=== PATIENT | male | born 1945 | race Caucasian/White ===

== ENCOUNTER 2023-12-27 03:39 | Inpatient (IN) | payer MEDICARE, MEDICAID, SELFPAY ==
[2023-12-27] VITALS (32 sets, daily range): BP systolic 96–237; BP diastolic 50–212; PULSE 57–148; RESP 18–39; TEMP 36.1–36.8; O2SAT 84–100; BMI 18.1
--- NOTE | ~2023-12-27 | XR_ITS ---
XR chest 1V portable 12/27/2023 04:14 Indication: Shortness of breath. Hypoxia. Procedure: AP portable chest Comparison: 04/07/2009 Findings: Left basilar airspace disease, compatible with pneumonia. The lungs are hyperinflated which is consistent with, but not diagnostic of chronic obstructive pulmonary disease. Possible small effu miladis. No pneumothorax. Subtle right basilar infiltrates. Impression: 1: Bibasilar airspace disease, left greater than right, compatible with pneumonia. Reviewed, dictated and finalized at location B. Impression: 1: Bibasilar airspace disease, left greater than right, compatible with pneumon ia.
--- NOTE | ~2023-12-27 | CT_ITS ---
EXAMINATION: CTA chest PE protocol DATE: 12/27/2023 06:15 CDT INDICATION: Hypoxia. Elevated d-dimer. TECHNIQUE: Computed tomographic angiography (CTA) of the chest was performed with 100 mL Omnipaque-35 0 intravenous contrast. The dose-length product was 286.03 mGy-cm. Maximum intensity projection 3D-re constructions of the aorta and other arteries were constructed by the technologist on a separate work station. Automated exposure control and iterative reconstruction technique were employed. COMPARISON: CT dated 08/10/2018. FINDINGS: Elevated left diaphragm. Study is technically adequate without evidence for pulmonary embol ism. Bilateral pleural effusions, left greater than right. Emphysema. 1.4 cm lingular nodule. Extensi ve left lower lobe airspace consolidation. Reticulonodular densities also seen in the right lower lob e. No endobronchial lesions. No pneumothorax. There is a sclerotic burst fracture of T5, age indeterm inate, although new compared with prior CT. There is posterior retropulsion into the canal. Moderate thoracic spondylosis. Gallstones. Right renal cyst. Moderate colonic fecal loading. There is extensiv e atherosclerosis of the aorta and coronary arteries. IMPRESSION: 1. No pulmonary embolism. 2: Bilateral lower lobe consolidation, left greater than right, consistent with pneumonia. 3: Lingular nodule measuring 1.4 cm, suspicious for malignancy. Recommend follow-up low dose CT chest in 3 months or PET/CT examination for this assessment of abnormal FDG uptake. 4: New age-indeterminate sclerotic burst fracture of T5 with retropulsion into the canal. Reviewed, dictated and finalized at location B. IMPRESSION: 1. No pulmonary embolism. 2: Bilateral lower lobe consolidation, left greater than right, consistent wit h pneumonia. 3: Lingular nodule measuring 1.4 cm, suspicious for malignancy. Recommend follo w-up low dose CT chest in 3 months or PET/CT examination for this assessment of abnormal FDG uptake. 4: New age-indeterminate sclerotic burst fracture of T5 with retropulsion into the canal.
--- NOTE | 2023-12-27 03:41 | ECG_ITS ---
Test Date: 2023-12-27 03:49:07 Measurements Intervals [place] Rate: 119 P: 0 [place]: 0 QRS: -12 QRSD: 123 T: 27 QT: 321 QTc: 452 Interpretive Statements ATRIAL FIBRILLATION WITH RAPID VENTRICULAR RESPONSE RIGHT BUNDLE BRANCH BLOCK ABNORMAL ECG No previous ECG available for comparison Electronically Signed On 12-27-2023 07:45:56 CDT by Mike Hoffmann D.O.
--- NOTE | 2023-12-27 03:44 | ED_ITS ---
HPI - SOB/Dyspnea General Chief Complaint: Shortness of Breath/Dyspnea Stated Complaint: low o2 sat Time Seen by Provider: 12/27/23 03:41 Source: patient and EMS Mode of arrival: EMS Limitations: no limitations History of Present Illness HPI Narrative: Patient presents complaint of a cough that started out try and has become productive. He states he has a chronic cough but this has changed in character. For EMS he was 85% on room air. They started treatment for COPD exacerbation improved to 88% immediately after the treatment and 90% while in route. They did a heart rate of 164 beats per minute deemed to be atrial fibrillation with RVR. Patient coming from [facility]. At baseline he is on 3 liters/minute. He was recently [facility] and [facility]. Per review of prison documentation he also has CHF and chronic her respiratory failure her with also concern for malignancy in 1 lobe. EMS had administered 125 mg Solu-Medrol, 5 albuterol plus DuoNeb. Patient states he is improving in terms of his shortness of breath but still remained short of breath. Related Data Home Medications Medication Instructions Recorded Confirmed albuterol sulfate 90 mcg/actuation 1 inh inhalation QID PRN Shortness 12/27/23 12/27/23 aerosol inhaler Of Breath Or Wheezing aspirin 81 mg tablet,delayed 81 mg PO DAILY 12/27/23 12/27/23 release brimonidine 0.2 % eye drops 1 drp EACH EYE TID 12/27/23 12/27/23 budesonide 160 mcg-glycopyr 9 2 inh inhalation BID 12/27/23 12/27/23 mcg-formot 4.8 mcg/actuation HFA inhaler (Breztri Aerosphere) clopidogrel 75 mg tablet 75 mg PO DAILY 12/27/23 12/27/23 empagliflozin 10 mg tablet 10 mg PO DAILY 12/27/23 12/27/23 (Jardiance) furosemide 20 mg tablet 20 mg PO DAILY PRN LEG SWELLING 12/27/23 12/27/23 ipratropium 0.5 mg-albuterol 3 mg 3 ml inhalation QID PRN Shortness 12/27/23 12/27/23 (2.5 mg base)/3 mL nebulization Of Breath Or Wheezing soln lisinopril 2.5 mg tablet 2.5 mg PO DAILY 12/27/23 12/27/23 metformin 500 mg tablet 500 mg PO BID 12/27/23 12/27/23 metoprolol succinate 25 mg 12.5 mg PO DAILY 12/27/23 12/27/23 tablet,extended release 24 hr mirtazapine 15 mg tablet 7.5 mg PO HS 12/27/23 12/27/23 sitagliptin phosphate 100 mg 100 mg PO DAILY 12/27/23 12/27/23 tablet (Januvia) Allergies Allergy/AdvReac Type Severity Reaction Status Date / Time No Known Allergies Allergy Mild Unverified 07/26/03 09:21 [facility] Past Medical History Medical History (Updated 12/28/23 @ 08:52 by Ivanna Suero MD) Acute and chronic respiratory failure with hypercapnia Acute and chronic respiratory failure with hypoxia Atherosclerotic heart disease of [place] coronary artery without angina pectoris Atrial fibrillation Chronic obstructive pulmonary disease, unspecified Chronic systolic (congestive) heart failure Essential (primary) hypertension Malignant neoplasm of lower lobe, left bronchus or lung Traumatic subarachnoid hemorrhage without loss of consciousness, initial encounter Type 2 diabetes mellitus with hyperglycemia Unspecified severe protein-calorie malnutrition Family History Family History Mother Family history of lung cancer Other Diabetes mellitus Social History Social History (Updated 12/27/23 @ 04:48 by Cielo Blum MD) Smoking packs per day: 2 Smoking cigarettes per day: 40.0 Smoking status: Current every day smoker Alcohol intake: never Substance use: never Do You Feel Safe in your Home?: Yes Lack of Transportation: No Lack of Food: Never True Current Housing: I Have Housing Concerned About Future Housing: No Difficulty Paying Gas/Electric Bills: No Difficulty Paying for Meds: No Currently Unemployed: No Education: High School Diploma/GED Difficulty w/ Childcare or Family Care: No Living arrangements: prison Additional living arrangements comments: [facility] Spiritual care concerns: No Exam Narrative: GENERAL: Chronically ill-appearing, in [id number] respiratory distress. Cachectic HEAD: Normocephalic, atraumatic. EYES: Non injected, non icteric ENT: Nares clear, no rhinorrhea or epistaxis. NECK: Supple. CHEST: Respiratory distress. Tachypneic. Poor air movement HEART: IRRegularly irregular rate and rhythm. . ABDOMEN: Soft, nondistended. EXTREMITIES: Normal range of motion. No edema. SKIN: Warm, dry, no rash. NEURO: No focal deficits. Alert and oriented x3. PSYCH: Normal mood and affect. Course Vital Signs Vital signs: Vital Signs Temperature 98.2 F 12/27/23 03:31 Pulse Rate 127 H 12/27/23 03:31 Respiratory Rate 22 H 12/27/23 03:31 Blood Pressure 130/77 12/27/23 03:31 Pulse Oximetry 84 L 12/27/23 03:31 Oxygen Delivery Nasal Cannula 12/27/23 03:31 Oxygen Flow Rate 6 12/27/23 03:31 Temperature 97.1 F L 12/28/23 05:52 Pulse Rate 114 H 12/28/23 10:01 Respiratory Rate 13 12/28/23 05:52 Blood Pressure 129/57 L 12/28/23 05:52 Pulse Oximetry 94 12/28/23 09:30 Oxygen Delivery Nasal Cannula 12/28/23 09:30 Oxygen Flow Rate 2 12/28/23 09:30 Fraction of Inspired Oxygen 50 12/28/23 01:00 MDM - SOB/Dyspnea MDM Narrative Medical decision making narrative: Patient presented with mild dyspnea on exertion and palpitations. Physical exam revealed an irregular and rapid heartbeat at a rate of 127 beats per minute. Patient's initial rate on EKG is 118. No diagnosis of Afib on PMH from PR or in EMR. TSH ordered. He does subsequently going atrial fibrillation with RVR at a rate between 140 and 160. Patient hemodynamically stable thus early priority in management was to slow the ventricular rate using metoprolol given this is a medication he is already on. IVP 2.5mg over 2 minutes initially ordered. Patient respond so will orally load with 25mg. There are ST depressions in V2, V3, V4, and V5; troponin ordered. Macrocytic anemia and leukocytosis with no prior for comparison. Patient's BNP is also elevated with no prior for comparison; Lasix ordered. Patient not tolerating the nebulizer mask with treatment. He is continually pulling out away from his face and states he can not breathe with it. He has used BiPAP before would like to try this as he states he does better with that despite it being more aggressive oxygenation strategy. I suspect that patient is having a combination of both COPD exacerbation and acute exacerbation CHF, though believe the COPD is the more prominent component. Patient has already received steroids, DuoNeb, albuterol, and magnesium and is on BiPAP. Given the nature of his cough has changed, this indication for antibiotic therapy and azithromycin is started. Evidence of PNA on CXR CURB-65 score Confusion (No 0, Yes +1): 0 BUN >19mg/dl (No 0, Yes +1) :1 RR >/= 30 (No 0, Yes +1): 0 SBP <90mmHg or DBP </=60mmHg (No 0, Yes +1) : 0 Age >/=65 (No 0, Yes +1): 1 Result = 2 points, moderate risk Given requiring BiPAP, will admit inpatient. PSI/PORT Score: Pneumonia Severity Index for CAP Age: 78 years Sex (F -10; Male 0): 0 correction resident (No 0, Yes +10): 10 Neoplastic disease (No 0, Yes +30): 30 Liver disease history (No 0, Yes +20): 0 CHF history (No 0, Yes +10): 10 Cerebrovascular disease history (No 0, Yes +10): 0 Renal disease history (No 0, Yes +10): 0 Altered mental status (No 0, Yes +20): 0 RR >/=30 breaths/min (No 0, Yes +20): 0 SBP <90mmHg (No 0, Yes +20): 0 Temp <35C (95F) or >39.9C (103.8F) - (No 0, Yes +15): 0 Pulse >/=125 beats/min (No 0, Yes +10): 10 pH <7.35 (No 0, Yes +30): not tested BUN >/=30 mg/dL or >/=11mmol/L (No 0, Yes +20): 0 Na <130mmol/L (No 0, Yes +20): 0 Glucose >/=250mg/dl (No 0, Yes +10): 0 Hct <30% (No 0, Yes +10): 0 partial pressure of oxygen <60mmHg (No 0, Yes +10): not assessed Pleural effusion on xray (No 0, Yes +10): 0 Result: 139 points. Risk class V, 27-29.2% mortality. DRIP Score - predicts risk for CAP d/t drug-resistant pathogens Antibiotic use within 60 days (No 0, Yes +2): 2 (Amox-clav on med list) intermediate teacher care resident (No 0, Yes +2): 2 Tube feeding (No 0, Yes +2) 0 Prior drug-resistant pneumonia Dx within 1 year (No 0, Yes +2): 0 doesn't believe so Hospitalization within 60 days (No 0, Yes +1): 0 Chronic pulmonary disease (No 0, Yes +1): 1 Poor functional status (No 0, Yes +1): 0 H2 tami or PPI within 14 days (No 0, Yes +1): 0 Active wound care at time of admission (No 0, Yes +1): 0 MRSA colonization within 1 year (No 0, Yes +1): 0 Total: 4 Given this will be an inpatient patient, will start ceftriaxone for potential drug resistant strep + azithromycin as well as vancomycin given how sick he is. Discussed with hospitalist. Lab Data 12/28/23 04:29 12/28/23 04:29 Labs: Lab Results 12/27/23 Range/Units 03:47 WBC 18.2 H (4.5-10.0) K/mm3 RBC 4.08 L (4.6-6.20) M/mm3 Hgb 12.8 L (14.0-18.0) g/dL Hct 41.6 L (42.0-52.0) % MCV 102.0 H (80-100) fl MCH 31.4 (26-34) pg MCHC 30.8 L (32-36) g/dl RDW 14.7 H (11.5-14.5) % Plt Count 371 (150-375) k/mm3 MPV 9.3 (7.4-10.4) fl Immature Gran % (Auto) 0.6 H (0-0.5) % Neut % (Auto) 79.9 H (45.5-73.1) % Lymph % (Auto) 10.6 L (18.3-44.2) % [place] % (Auto) 8.2 (2.6-8.5) % Eos % (Auto) 0.5 (0-4.4) % Baso % (Auto) 0.2 (0.2-1.2) % Lymph # (Auto) 1.93 (0.9-3.2) K/mm3 [place] # (Auto) 1.5 H (0.1-0.6) K/mm3 Eos # (Auto) 0.1 (0-0.3) K/mm3 Baso # (Auto) 0.0 (0.0-0.1) K/mm3 Abs Immat Gran (auto) 0.11 H (0.00-0.031) K/mm3 Absolute Neuts (auto) 14.5 H (1.3-6.7) K/mm3 Absolute Nucleated RBC 0.000 (0.0-0.012) K/mm3 Nucleated RBC % 0.0 (0.0-0.2) % PT 12.9 (11.1-14.7) Seconds INR 0.9 APTT 26.5 (22.3-36.8) Seconds D-Dimer 1.31 H (<0.48) ug/mL Sodium 137 (137-145) mmol/L Potassium 4.3 (3.4-5.0) mmol/L Chloride 93 L (98-107) mmol/L Carbon Dioxide > 40 H (22-30) mmol/L Anion Gap (4-12) mmol/L BUN 25 H (9-20) mg/dL Creatinine 0.70 (0.7-1.3) mg/dL Estim Creat Clear Calc 69 ml/min Estimated GFR > 60 (59 - ) Glucose 151 H (65-110) mg/dL Lactic Acid 1.3 (0.7-2.0) mmol/L Calcium 8.6 (8.4-10.2) mg/dL Magnesium 3.2 H (1.6-2.3) mg/dL Total Bilirubin 0.6 (0.2-1.3) mg/dL AST 27 (17-59) U/L ALT 23 (6-50) U/L Alkaline Phosphatase 129 H (38-126) U/L Troponin I 0.025 (0.000-0.034) ng/mL NT-Pro-B Natriuret Pep 2350 H (19.9-100) pg/mL Total Protein 6.0 L (6.3-8.2) g/dL Albumin 3.6 (3.5-5.1) g/dL TSH 1.660 (0.465-4.680) uIU/mL Influenza A (RT-PCR) Negative (Negative) Influenza B (RT-PCR) Negative (Negative) RSV (RT-PCR) Negative (Negative) SARS-CoV-2 RNA (RT-PCR) Negative (Negative) Imaging Data Attestation: I personally reviewed and interpreted this imaging study as follows: My impression: Hyperinflated lungs Radiologist's impression: Impressions Chest CTA 12/27/23 06:15 IMPRESSION: 1. No pulmonary embolism. 2: Bilateral lower lobe consolidation, left greater than right, consistent with pneumonia. 3: Lingular nodule measuring 1.4 cm, suspicious for malignancy. Recommend follow-up low dose CT chest in 3 months or PET/CT examination for this assessment of abnormal FDG uptake. 4: New age-indeterminate sclerotic burst fracture of T5 with retropulsion into the canal. Chest X-Ray 12/27/23 06:23 Impression: 1: Bibasilar airspace disease, left greater than right, compatible with pneumon ia. ECG Data EKG #1: Attestation: I personally reviewed and interpreted this ECG as follows: ECG completion date: 12/27/23 ECG completion time: 04:41 Interpretation: Atrial fibrillation with rapid ventricular response at a rate of 119 beats per minute. QRS 123. QT/QTC 321/391. RBBB given QRS>120ms; RSR' M-shaped pattern in V1-V3; wide, slurred S wave in lateral leads (I, aVL, V5-6). Pre populated algorithm suggests left ventricular hypertrophy but S wave depth in V1 + tallest R wave height in V5-6 is <35mm and R wave in lead I + S wave in lead III is <25mm. They do appear to be ST depressions in V2 through V5. Discharge Plan Discharge Clinical Impression: COPD exacerbation, Atrial fibrillation with RVR, Right bundle branch block (RBBB) determined by electrocardiography, Anemia, macrocytic, Leukocytosis, Acute exacerbation of chronic heart failure, Pneumonia, Lung nodule, Stable burst fracture of T5 vertebra Patient Disposition: Still a Patient Condition: Improved
[2023-12-27] MEDS: ALBUTEROL SULFATE NEB 2.5 MG/3 ML INH INHALATION ×3 (03:53→04:00)
[2023-12-27 03:59] LABS: Basophils Percent Auto 0.2 % (0.2-1.2); Eosinophils Absolute Auto 0.1 K/mm3 (0-0.3); Eosinophils Percent Auto 0.5 % (0-4.4); Hematocrit 41.6 % (42.0-52.0); Hemoglobin 12.8 g/dL (14.0-18.0); Immature Granulocyte Absolute 0.11 K/mm3 (0.00-0.031); Immature Granulocyte Percent A 0.6 % (0-0.5); Lymphocytes Absolute Auto 1.93 K/mm3 (0.9-3.2); Lymphocytes Percent Auto 10.6 % (18.3-44.2); Mean Corpuscular HGB Conc 30.8 g/dl (32-36); Mean Corpuscular Hemoglobin 31.4 pg (26-34); Mean Platelet Volume 9.3 fl (7.4-10.4); Monocytes Absolute Auto 1.5 K/mm3 (0.1-0.6); Monocytes Percent Auto 8.2 % (2.6-8.5); Neutrophils Absolute Auto 14.5 K/mm3 (1.3-6.7); Neutrophils Percent Auto 79.9 % (45.5-73.1); Platelet Count Result 371 k/mm3 (150-375); Red Blood Count 4.08 M/mm3 (4.6-6.20); Red Cell Distribution Width 14.7 % (11.5-14.5); White Blood Count 18.2 K/mm3 (4.5-10.0)
[2023-12-27] MEDS: IPRATROPIUM 0.5 MG/ALBUTEROL SULFATE 2.5 MG AMPUL.NEB 3 ML INHALATION ×3 (03:59→04:00)
[2023-12-27 04:07] LABS: INR 0.9; Prothrombin Time 12.9 Seconds (11.1-14.7)
[2023-12-27 04:08] LABS: Partial Thromboplastin Time 26.5 Seconds (22.3-36.8)
[2023-12-27 04:11] LABS: D Dimer 1.31 ug/mL (<0.48)
[2023-12-27 04:15] LABS: Lactic Acid Reflex 1.3 mmol/L (0.7-2.0)
[2023-12-27 04:17] LABS: Alanine Aminotransferase 23 U/L (6-50); Albumin Level 3.6 g/dL (3.5-5.1); Alkaline Phosphatase 129 U/L (38-126); Aspartate Amino Transferase 27 U/L (17-59); Bilirubin,Total 0.6 mg/dL (0.2-1.3); Blood Urea Nitrogen 25 mg/dL (9-20); Calcium 8.6 mg/dL (8.4-10.2); Carbon Dioxide > 40 mmol/L (22-30); Chloride 93 mmol/L (98-107); Estimated CRCL calculation 69 ml/min; Estimated Glomerular Filt Rate > 60; Glucose 151 mg/dL (65-110); Magnesium 3.2 mg/dL (1.6-2.3); Potassium 4.3 mmol/L (3.4-5.0); Sodium 137 mmol/L (137-145)
[2023-12-27] MEDS: AZITHROMYCIN 500 MG/NS 250 ML 500 MG/250 ML BAG 250 MG IVPB (04:17)
[2023-12-27 04:25] LABS: NT Pro B Type Natriuretic Pept 2350 pg/mL (19.9-100)
[2023-12-27 04:35] LABS: Influenza A QL RT-PCR Negative (Negative); Influenza B QL RT-PCR Negative (Negative); RSV RNA, RT-PCR Negative (Negative); SARS-CoV-2 RNA PCR Negative (Negative)
[2023-12-27 05:12] LABS: Troponin I 0.025 ng/mL (0.000-0.034)
[2023-12-27] MEDS: METOPROLOL TARTRATE INJ 5 MG/5 ML VIAL 2.5 MG IV PUSH (05:26)
[2023-12-27] MEDS: FUROSEMIDE INJ 40 MG/4 ML VIAL IV PUSH (05:26)
[2023-12-27] MEDS: METOPROLOL TARTRATE 50 MG TAB 25 MG PO (06:03)
--- NOTE | 2023-12-27 07:28 | PC.NURSE ---
EDP Dr. Neri ordered blood cultures x2 on patient after pt received abx. this rn confirmed understanding with edp dr. neri. edp dr. neri verbalized need for patient to continue to have blood cultures drawn for patient. this rn ronnie blood cultures x2 on patient and then initiated abx therapy.
[2023-12-27] MEDS: VANCOMYCIN 1,750 MG/NS 500 ML 1,750 MG/500 ML BAG 250 MG IVPB (07:39)
--- NOTE | 2023-12-27 08:08 | PC.NURSE ---
0700: Assumed care of pt. Pt lung sounds diminished throughout. Tolerating BiPap well. Incontinent of urine, bebe care given & linen changed. Noted dressing to right hand & right elbow from skilled nursing, intact & dry. Pt with fragile skin
--- NOTE | 2023-12-27 09:10 | ADMGEN ---
This patient, Heriberto Duran, was admitted to IMU Room 204-01 at 0856 Patient/family oriented to hospital policies and general routines including ID bracelet, bed and alarms, visiting hours, pain management, procedures, bathroom and other care routines, personal items, smoking policy, room service/diet, and visiting hours. Information on how to activate the Rapid Response Team has been discussed. Patient/Family are encouraged to report perceived risks to care and to ask questions if they do not understand what they are told or what they should do.
--- NOTE | 2023-12-27 14:07 | PM.IMHP ---
H&P: HPI History of Present Illness Date/Time: 12/27/23 14:07 Chief Complaint: Shortness of breath Narrative: Patient presents complaining of shortness of breath for 1 month. Has a history of lung cancer active smoking with 2 packs per day, COPD, chronic respiratory failure wearing 3 L of oxygen during the day. He has history of AFib for himself has elected not to be on blood thinners due to very easy bruising. He does take an aspirin and Plavix. Patient was escalated to BiPAP in ER due to work of breathing. He was given ceftriaxone azithromycin and vancomycin along with breathing treatments and Solu-Medrol. CTA of chest PE protocol demonstrates no PE, bilateral lower lobe consolidation left greater than right, lingular nodule measuring 1.4 cm. Age-indeterminate burst fracture of T5. Patient is poor historian, reports fractures old. He has no back pain and he elected to follow-up with primary/surgical specialty. He reports he had a history of cancer diagnosed 3 months ago but does not know where and says he elected no treatment. He reports he wants to be DNR. Review of Systems Review of Systems: All systems reviewed & are unremarkable except as noted in HPI and below (Subjective) [facility] Past Medical History Medical History (Updated 12/27/23 @ 06:47 by Cielo Blum MD) Acute and chronic respiratory failure with hypercapnia Acute and chronic respiratory failure with hypoxia Atherosclerotic heart disease of [place] coronary artery without angina pectoris Chronic obstructive pulmonary disease, unspecified Chronic systolic (congestive) heart failure Essential (primary) hypertension Malignant neoplasm of lower lobe, left bronchus or lung Traumatic subarachnoid hemorrhage without loss of consciousness, initial encounter Type 2 diabetes mellitus with hyperglycemia Unspecified severe protein-calorie malnutrition Family History Family History Mother Family history of lung cancer Other Diabetes mellitus Social History Social History (Updated 12/27/23 @ 04:48 by Cielo Blum MD) Smoking packs per day: 2 Smoking cigarettes per day: 40.0 Smoking status: Current every day smoker Alcohol intake: never Substance use: never Do You Feel Safe in your Home?: Yes Lack of Transportation: No Lack of Food: Never True Current Housing: I Have Housing Concerned About Future Housing: No Difficulty Paying Gas/Electric Bills: No Difficulty Paying for Meds: No Currently Unemployed: No Education: High School Diploma/GED Difficulty w/ Childcare or Family Care: No Living arrangements: intermediate Additional living arrangements comments: [facility] Spiritual care concerns: No Meds Home Medications and Allergies Home Medications Medication Instructions Recorded Confirmed Type albuterol sulfate 90 mcg/actuation 1 inh inhalation QID PRN Shortness 12/27/23 12/27/23 History aerosol inhaler Of Breath Or Wheezing aspirin 81 mg tablet,delayed 81 mg PO DAILY 12/27/23 12/27/23 History release brimonidine 0.2 % eye drops 1 drp EACH EYE TID 12/27/23 12/27/23 History budesonide 160 mcg-glycopyr 9 2 inh inhalation BID 12/27/23 12/27/23 History mcg-formot 4.8 mcg/actuation HFA inhaler (Breztri Aerosphere) clopidogrel 75 mg tablet 75 mg PO DAILY 12/27/23 12/27/23 History empagliflozin 10 mg tablet 10 mg PO DAILY 12/27/23 12/27/23 History (Jardiance) furosemide 20 mg tablet 20 mg PO DAILY PRN LEG SWELLING 12/27/23 12/27/23 History ipratropium 0.5 mg-albuterol 3 mg 3 ml inhalation QID PRN Shortness 12/27/23 12/27/23 History (2.5 mg base)/3 mL nebulization Of Breath Or Wheezing soln lisinopril 2.5 mg tablet 2.5 mg PO DAILY 12/27/23 12/27/23 History metformin 500 mg tablet 500 mg PO BID 12/27/23 12/27/23 History metoprolol succinate 25 mg 12.5 mg PO DAILY 12/27/23 12/27/23 History tablet,extended release 24 hr mirtazapine 15 mg tablet 7.5 mg PO HS 12/27/23 12/27/23 History sitagliptin phosphate 100 mg 100 mg PO DAILY 12/27/23 12/27/23 History tablet (Januvia) amoxicillin 875 mg-potassium 1 tablet PO Q12H 3 days #6 tabs 12/28/23 Rx clavulanate 125 mg tablet azithromycin 250 mg tablet 250 mg PO DAILY 3 days #3 tabs 12/28/23 Rx nicotine 21 mg/24 hr daily 1 patch transdermal DAILY #28 ea 12/28/23 Rx transdermal patch (Nicoderm CQ) prednisone 20 mg tablet 60 mg PO DAILY #5 tabs 12/28/23 Rx Allergies Allergy/AdvReac Type Severity Reaction Status Date / Time No Known Allergies Allergy Mild Unverified 07/26/03 09:21 Vital Signs Vital Signs - 24 hr 12/27/23 03:31 12/27/23 03:49 12/27/23 03:49 Temperature 98.2 F Pulse Rate 127 H 120 H Respiratory Rate 22 H Blood Pressure 130/77 Pulse Oximetry 84 L 99 Oxygen Delivery Nasal Cannula Non-Rebreather Mask Oxygen Flow Rate 6 15 Fraction of Inspired Oxygen 12/27/23 03:49 12/27/23 03:58 12/27/23 04:30 Temperature Pulse Rate 117 H 128 H 148 H Respiratory Rate 22 H 18 28 H Blood Pressure 116/60 Pulse Oximetry 100 94 Oxygen Delivery BiPAP Oxygen Flow Rate Fraction of Inspired Oxygen 12/27/23 05:03 12/27/23 05:26 12/27/23 05:26 Temperature Pulse Rate 139 H 143 H 143 H Respiratory Rate 26 H 38 H Blood Pressure 237/212 H Pulse Oximetry 94 Oxygen Delivery Oxygen Flow Rate Fraction of Inspired Oxygen 12/27/23 05:55 12/27/23 06:03 12/27/23 06:17 Temperature Pulse Rate 114 H 110 H 112 H Respiratory Rate 30 H 30 H Blood Pressure 128/107 H 138/85 Pulse Oximetry 91 94 Oxygen Delivery Oxygen Flow Rate Fraction of Inspired Oxygen 12/27/23 06:21 12/27/23 06:34 12/27/23 07:25 Temperature Pulse Rate 139 H 107 H 92 Respiratory Rate 26 H 19 30 H Blood Pressure 144/97 H Pulse Oximetry 92 96 98 Oxygen Delivery BiPAP BiPAP Oxygen Flow Rate Fraction of Inspired Oxygen 12/27/23 07:31 12/27/23 07:41 12/27/23 07:42 Temperature 97.6 F Pulse Rate 88 Respiratory Rate 30 H 20 Blood Pressure 108/64 Pulse Oximetry 98 97 97 Oxygen Delivery BiPAP BiPAP Oxygen Flow Rate Fraction of Inspired Oxygen 12/27/23 07:15 12/27/23 08:34 12/27/23 09:05 Temperature 97.6 F Pulse Rate 87 73 70 Respiratory Rate 20 25 H Blood Pressure 126/78 Pulse Oximetry 100 100 Oxygen Delivery BiPAP Oxygen Flow Rate Fraction of Inspired Oxygen 12/27/23 09:30 12/27/23 11:00 12/27/23 12:20 Temperature 97.6 F 97.5 F L Pulse Rate 71 77 76 Respiratory Rate 27 H 39 H 20 Blood Pressure 100/54 L 96/52 L Pulse Oximetry 100 99 100 Oxygen Delivery Nasal Cannula Oxygen Flow Rate 2 Fraction of Inspired Oxygen 12/27/23 12:00 12/27/23 10:00 12/27/23 14:04 Temperature Pulse Rate Respiratory Rate Blood Pressure Pulse Oximetry 96 98 95 Oxygen Delivery Nasal Cannula BiPAP Nasal Cannula Oxygen Flow Rate 2 2 Fraction of Inspired Oxygen 50 12/27/23 09:22 Temperature Pulse Rate 70 Respiratory Rate 25 H Blood Pressure Pulse Oximetry Oxygen Delivery Oxygen Flow Rate Fraction of Inspired Oxygen Exam Const: General: comfortable and no acute distress Other: Frail, elderly man. Friable skin with ecchymosis HENMT: Mouth: Yes dry mucous membranes Eyes: Pupils: Equal, round and reactive pupils present Neck: Neck: supple Resp: Effort & Inspection: normal respiratory effort Other: Severely diminished lung sounds Cardio: Rate: regular rate Rhythm: abnormal rhythm GI: GI Palp: Yes Soft to palpation and No Tenderness to palpation present (GI) Extrem: General: no edema H&P: Results Labs Labs: Short CBC 12/27/23 Range/Units 03:47 WBC 18.2 H (4.5-10.0) K/mm3 Hgb 12.8 L (14.0-18.0) g/dL Hct 41.6 L (42.0-52.0) % Plt Count 371 (150-375) k/mm3 [facility] 12/27/23 03:47 Sodium 137 Potassium 4.3 Chloride 93 L Carbon Dioxide > 40 H BUN 25 H Creatinine 0.70 Glucose 151 H Calcium 8.6 Cardiac Enzymes 12/27/23 Range/Units 03:47 Troponin I 0.025 (0.000-0.034) ng/mL Liver Function 12/27/23 Range/Units 03:47 Total Bilirubin 0.6 (0.2-1.3) mg/dL AST 27 (17-59) U/L ALT 23 (6-50) U/L Alkaline Phosphatase 129 H (38-126) U/L Albumin 3.6 (3.5-5.1) g/dL Assessment and Plan Assessment and plan (1) Leukocytosis: Code(s): D72.829 - Elevated white blood cell count, unspecified Status: Acute (2) Pneumonia: Qualifiers: Laterality: bilateral Lung location: lower lobe of lung Code(s): J18.9 - Pneumonia, unspecified organism Status: Acute (3) Lung nodule: Code(s): R91.1 - Solitary pulmonary nodule Status: Acute (4) COPD exacerbation: Code(s): J44.1 - Chronic obstructive pulmonary disease with (acute) exacerbation Status: Acute Plan Continue breathing treatments, ceftriaxone and azithromycin. Patient wishes to be DNR, he does not want anticoagulation for AFib. At this time he does not want to follow-up for his lung cancer either. Hospitalist MIPS Advance Care Plan I have confirmed that the patient's Advanced Care Plan is present, code status is documented, or surrogate decision maker is listed in patient medical record.: Yes Medication Reconciliation I have utilized all available resources to obtain, update and review the patients current medications (includes all prescriptions, OTC, herbals, cannabis, and nutritional supplements).: Yes
[2023-12-27] MEDS: METOPROLOL SUCCINATE EXT REL 12.5 MG TABCR PO (14:46)
[2023-12-27] MEDS: CLOPIDOGREL BISULFATE 75 MG TABLET PO (14:46)
[2023-12-27] MEDS: EMPAGLIFLOZIN 10 MG TABLET PO (14:46)
[2023-12-27] MEDS: ASPIRIN 81 MG ENTERIC TABLET PO (14:50)
[2023-12-27 16:14] LABS: MRSA (PCR) NOT DETECTED (NOT DETECTE)
[2023-12-27] MEDS: NICOTINE (*PBKC) 21 MG PATCH 1 PATCH TRANSDERM (17:55)
[2023-12-27] MEDS: BRIMONIDINE TARTRATE 0.2% OP SOLN 5 ML BTL 1 DROP EACH EYE (17:55)
[2023-12-27] MEDS: INSULIN ASPART (*BKC) 100 UNITS/ML SUB-Q (18:00)
[2023-12-27 18:05] LABS: Glucose Point of Care 365 mg/dl (65-105)
[2023-12-27 20:09] LABS: Glucose Point of Care 161 mg/dl (65-105)
[2023-12-27] MEDS: MIRTAZAPINE 7.5 MG TABLET PO (20:17)
[2023-12-28] VITALS (9 sets, daily range): BP systolic 106–129; BP diastolic 36–57; PULSE 52–114; RESP 13–20; TEMP 36.2; O2SAT 94–100
[2023-12-28] MEDS: VANCOMYCIN 1,000 MG/NS 250 ML 1,000 MG/250 ML BAG 250 MG IVPB (02:25)
[2023-12-28 04:47] LABS: Basophils Percent Auto 0.2 % (0.2-1.2); Eosinophils Absolute Auto 0.1 K/mm3 (0-0.3); Eosinophils Percent Auto 0.8 % (0-4.4); Hematocrit 36.7 % (42.0-52.0); Hemoglobin 11.4 g/dL (14.0-18.0); Immature Granulocyte Absolute 0.07 K/mm3 (0.00-0.031); Immature Granulocyte Percent A 0.6 % (0-0.5); Lymphocytes Absolute Auto 1.13 K/mm3 (0.9-3.2); Lymphocytes Percent Auto 10.2 % (18.3-44.2); Mean Corpuscular HGB Conc 31.1 g/dl (32-36); Mean Corpuscular Hemoglobin 31.4 pg (26-34); Mean Corpuscular Volume 101.1 fl (80-100); Mean Platelet Volume 9.4 fl (7.4-10.4); Monocytes Absolute Auto 0.8 K/mm3 (0.1-0.6); Monocytes Percent Auto 7.1 % (2.6-8.5); Neutrophils Percent Auto 81.1 % (45.5-73.1); Platelet Count Result 320 k/mm3 (150-375); Red Blood Count 3.63 M/mm3 (4.6-6.20)
[2023-12-28 05:00] LABS: INR 0.9; Prothrombin Time 12.8 Seconds (11.1-14.7)
[2023-12-28 05:06] LABS: Blood Urea Nitrogen 29 mg/dL (9-20); Calcium 8.3 mg/dL (8.4-10.2); Carbon Dioxide > 40 mmol/L (22-30); Chloride 93 mmol/L (98-107); Estimated CRCL calculation 79 ml/min; Estimated Glomerular Filt Rate > 60; Glucose 110 mg/dL (65-110); Magnesium 2.5 mg/dL (1.6-2.3); Potassium 4.2 mmol/L (3.4-5.0); Sodium 137 mmol/L (137-145)
[2023-12-28 05:28] LABS: Procalcitonin 0.2 ng/mL
--- NOTE | 2023-12-28 05:38 | PC.NURSE ---
This patient, Heriberto Duran, was transferred to [[id number] ] on 12/28/23 at 0530. Personal belongings sent with patient. Report given to [Adilson HUERTA ]. Appropriate documentation sent with patient.
--- NOTE | 2023-12-28 06:27 | PC.NURSE ---
Spoke with keith Torres to notify of room change to 309.
[2023-12-28 08:13] LABS: Glucose Point of Care 131 mg/dl (65-105)
[2023-12-28] MEDS: FLUTICASONE/UMECLIDIN/VILANTER 100-62.5-25 MCG ELLIPTA 1 PUFF INHALATION (08:15)
--- NOTE | 2023-12-28 08:50 | PM.DS ---
DS: Admitting Diagnosis Discharge Date December 28, 2023 Admitting Diagnosis Shortness of breath x1 month DS: Discharge Diagnosis Discharge Diagnosis (1) Leukocytosis: Code(s): D72.829 - Elevated white blood cell count, unspecified Status: Acute (2) Pneumonia: Qualifiers: Laterality: bilateral Lung location: lower lobe of lung Code(s): J18.9 - Pneumonia, unspecified organism Status: Acute (3) COPD exacerbation: Code(s): J44.1 - Chronic obstructive pulmonary disease with (acute) exacerbation Status: Acute (4) Stable burst fracture of T5 vertebra: Code(s): S22.051A - Stable burst fracture of T5-T6 vertebra, initial encounter for closed fracture Status: Acute (5) Lung nodule: Code(s): R91.1 - Solitary pulmonary nodule Status: Acute (6) Atrial fibrillation: Code(s): I48.91 - Unspecified atrial fibrillation Status: Acute DS: Summary Hospital Course Hospital Course: On 12/28/2023 the patient is breathing comfortably at his baseline 3 L nasal cannula. He reports he is at his baseline as well and wants to go home. He is in stable condition. He will be described another 3 days of prednisone 60 mg p.o. q.day, Augmentin and azithromycin for 3 days, nicotine patch. He has been heavily counseled on the likelihood that he continues to deteriorate as he smokes 2 packs per day and he has no interest in quitting. Adverse effects, risk and benefits of medication discussed to which she understood and agreed to follow-up with his PCP within 7 days as well. Attempted to discuss his a fib, cancer, smoking status, copd again. He does not want further treatment or discussions at the moment. did advise to follow up with PCP, cardiology, cancer doctor, pulmonology. blood cultures, mycoplasma IgM, pneumococcal and Legionella urinary antigens have been obtained. He will continue aspirin and plavix on discharge. Continue Breztri controller. He was DNR. Time spent discussing smoking cessation with patient: more than 10 minutes Time Spent with Patient Time attestation: Total time spent providing and/or coordinating discharge services: Time spent: Greater than 30 minutes Exam Const: General: comfortable and no acute distress Other: Frail, elderly man. Friable skin with ecchymosis HENMT: Mouth: Yes dry mucous membranes Eyes: Pupils: Equal, round and reactive pupils present Neck: Neck: supple Resp: Effort & Inspection: normal respiratory effort Other: Severely diminished lung sounds Cardio: Rate: regular rate Rhythm: abnormal rhythm GI: GI Palp: Yes Soft to palpation and No Tenderness to palpation present (GI) Extrem: General: no edema DS: Data Data Completed and Pending Labs on day of discharge: Labs from last 24 hours 12/28/23 12/28/23 12/27/23 08:06 04:29 20:07 WBC 11.0 H RBC 3.63 L Hgb 11.4 L Hct 36.7 L MCV 101.1 H MCH 31.4 MCHC 31.1 L RDW 15.0 H Plt Count 320 MPV 9.4 Immature Gran % (Auto) 0.6 H Neut % (Auto) 81.1 H Lymph % (Auto) 10.2 L [place] % (Auto) 7.1 Eos % (Auto) 0.8 Baso % (Auto) 0.2 Lymph # (Auto) 1.13 [place] # (Auto) 0.8 H Eos # (Auto) 0.1 Baso # (Auto) 0.0 Abs Immat Gran (auto) 0.07 H Absolute Neuts (auto) 9.0 H Absolute Nucleated RBC 0.000 Nucleated RBC % 0.0 PT 12.8 INR 0.9 Sodium 137 Potassium 4.2 Chloride 93 L Carbon Dioxide > 40 H Anion Gap BUN 29 H Creatinine 0.50 L Estim Creat Clear Calc 79 Estimated GFR > 60 Glucose 110 POC Capillary Glucose 131 H 161 H Calcium 8.3 L Magnesium 2.5 H Procalcitonin 0.2 Nasal MRSA (PCR) Ur L.pneumophila Ag Mycoplasma pneumon IgM Pending Urine Pneumococcal Ag 12/27/23 12/27/23 17:56 14:53 WBC RBC Hgb Hct MCV MCH MCHC RDW Plt Count MPV Immature Gran % (Auto) Neut % (Auto) Lymph % (Auto) [place] % (Auto) Eos % (Auto) Baso % (Auto) Lymph # (Auto) [place] # (Auto) Eos # (Auto) Baso # (Auto) Abs Immat Gran (auto) Absolute Neuts (auto) Absolute Nucleated RBC Nucleated RBC % PT INR Sodium Potassium Chloride Carbon Dioxide Anion Gap BUN Creatinine Estim Creat Clear Calc Estimated GFR Glucose POC Capillary Glucose 365 H Calcium Magnesium Procalcitonin Nasal MRSA (PCR) Not detected Ur L.pneumophila Ag Pending Mycoplasma pneumon IgM Urine Pneumococcal Ag Pending Discharge Plan Discharge Attending physician on discharge: Ivanna Suero Discharging Clinician: Ivanna Suero Patient Disposition: Home, Self-Care Activity: may shower Diet: heart healthy and diabetic Patient Instructions: Antibiotic Form, How to Stop Smoking (GEN), Bacterial Pneumonia (GEN) Stand Alone Forms: General Discharge Information Follow-up/Referrals: Jadon Alexander MD [Primary Care Provider] - Call for Appointment (follow up within 1 week) Discharge Medications: New nicotine [Nicoderm CQ] 21 mg/24 hr Patch 24 Hour 1 patch transdermal DAILY Qty: 28 0RF amoxicillin-pot clavulanate 875-125 mg tablet 1 tablet PO Q12H 3 Days Qty: 6 0RF azithromycin 250 mg tablet 250 mg PO DAILY 3 Days Qty: 3 0RF prednisone 20 mg tablet 60 mg PO DAILY Qty: 5 0RF Continued metformin 500 mg tablet 500 mg PO BID ipratropium-albuterol 0.5 mg-3 mg(2.5 mg base)/3 mL solution for nebulization 3 ml INHALATION QID PRN (Reason: Shortness Of Breath Or Wheezing) clopidogrel 75 mg tablet 75 mg PO DAILY aspirin 81 mg tablet,delayed release (DR/EC) 81 mg PO DAILY brimonidine 0.2 % drops 1 drp EACH EYE TID furosemide 20 mg tablet 20 mg PO DAILY PRN (Reason: LEG SWELLING) mirtazapine 15 mg tablet 7.5 mg PO HS metoprolol succinate 25 mg tablet extended release 24 hr 12.5 mg PO DAILY albuterol sulfate 90 mcg/actuation HFA aerosol inhaler 1 inh INHALATION QID PRN (Reason: Shortness Of Breath Or Wheezing) lisinopril 2.5 mg tablet 2.5 mg PO DAILY Januvia 100 mg tablet 100 mg PO DAILY Jardiance 10 mg tablet 10 mg PO DAILY Breztri Aerosphere 160-9-4.8 mcg/actuation HFA aerosol inhaler 2 inh INHALATION BID Date of admission: 12/27/23 07:16 Primary Care Provider: Jadon Alexander Admitting Provider: Ivanna Suero Attending physician on admission: Ivanna Suero Condition: Improved Hospitalist MIPS Heart Failure (Exclusion) Patient has history of Heart Transplant or Left Ventricular Assistive Device?: No IF YES, STOP HERE Heart Failure (Qualifier) Patient has current or prior documentation of LVEF less than or equal to 40%, or mod/servere depressed LVSF?: No IF NO, STOP HERE
[2023-12-28] MEDS: ASPIRIN 81 MG ENTERIC TABLET PO (09:31)
[2023-12-28] MEDS: CLOPIDOGREL BISULFATE 75 MG TABLET PO (09:32)
[2023-12-28] MEDS: EMPAGLIFLOZIN 10 MG TABLET PO (09:32)
[2023-12-28] MEDS: AZITHROMYCIN 500 MG/NS 250 ML 500 MG/250 ML BAG 250 MG IVPB (09:32)
[2023-12-28] MEDS: NICOTINE (*PBKC) 21 MG PATCH 1 PATCH TRANSDERM (09:33)
[2023-12-28] MEDS: METOPROLOL SUCCINATE EXT REL 12.5 MG TABCR PO (10:01)
--- NOTE | 2023-12-28 10:45 | PC.NURSE ---
Unable to fax copy of discharge paperwork to [facility] due to their fax machine not working, copy of discharge instructions sent with EMS to facility.
--- NOTE | 2023-12-28 12:23 | PC.NURSE ---
On 12/28/23, the PHOTOGRAPHIC DEVELOPER AND PRINTER, Di, provided care and completed [facility] documentation on this patient. I have reviewed the PHOTOGRAPHIC DEVELOPER AND PRINTER's documentation and agree with the findings.
[2023-12-31 19:13] LABS: Pneumococcal Antigen Urine NOT DETECTED
[2024-01-01 02:37] LABS: Legionella pneumophila Ag Ur NOT DETECTED
[2024-01-02 17:58] LABS: Mycoplasma IgM Antibody Titer 96 U/mL
== END 2023-12-28 11:40 | DRG 194 ==
LOC: ANHED 04:25 → ANHIMU 08:15 → ANH3MEDSUR 12-28 05:35
PROVIDERS: Admitting Provider General Practice; Emergency Provider Student in an Organized Health Care Education/Training Program; PCP Internal Medicine; Visit Provider General Practice
DX: J18.9 Pneumonia, unspecified organism (principal); C34.90 Malignant neoplasm of unspecified part of unspecified bronchus or lung; J44.1 Chronic obstructive pulmonary disease with (acute) exacerbation; I50.22 Chronic systolic (congestive) heart failure; Z68.1 Body mass index [BMI] 19.9 or less, adult; E11.9 Type 2 diabetes mellitus without complications; F17.210 Nicotine dependence, cigarettes, uncomplicated; I48.91 Unspecified atrial fibrillation; I11.0 Hypertensive heart disease with heart failure; R91.1 Solitary pulmonary nodule; Z66 Do not resuscitate; Z20.822 Contact with and (suspected) exposure to COVID-19; Z79.82 Long term (current) use of aspirin; Z79.02 Long term (current) use of antithrombotics/antiplatelets; Z79.84 Long term (current) use of oral hypoglycemic drugs; Z79.85 Long-term (current) use of injectable non-insulin antidiabetic drugs
CPT/HCPCS: 36415; 71045; 71275; 80048; 80053; 82948; 83605; 83735; 83880; 84145; 84443; 84484; 85025; 85380; 85610; 85730; 86738; 87040; 87077; 87181; 87449; 87637; 87641; 87899; 93005; 94002; 94640; 96365; 96375; 99285; A9270; J0456; J0696; J1815; J1940; J3370; Q9967

== ENCOUNTER 2024-01-09 05:04 | Inpatient (IN) | payer MEDICARE, MEDICAID, SELFPAY ==
[2024-01-09] VITALS (28 sets, daily range): BP systolic 101–135; BP diastolic 48–97; PULSE 70–99; RESP 13–28; TEMP 36.4–36.8; O2SAT 90–100; BMI 20.3
--- NOTE | ~2024-01-09 | XR_ITS ---
Portable chest x-ray Comparison: 12/27/2023 Clinical History: Dyspnea Findings: Probable COPD pattern of the lungs present. Stable mild haziness left lung base. No new pu lmonary abnormality evident. Cardiomediastinal silhouette is stable. Bones and soft tissues are unre markable. Impression: COPD with stable nonspecific haziness left lung base. Left basilar pneumonia is a potential considera tion. Reviewed, dictated and finalized at [facility]. Impression: COPD with stable nonspecific haziness left lung base. Left basilar pneumonia is a potential consideration.
--- NOTE | ~2024-01-09 | CT_ITS ---
EXAMINATION: CTA chest PE protocol DATE: 01/12/2024 08:30 INDICATION: Shortness of breath. Hypoxia. TECHNIQUE: Computed tomography angiography (CTA) of the chest was performed with 100 mL Omnipaque-350 intravenous contrast timed to evaluate the pulmonary arteries. Coronal maximum intensity projection 3D-reconstructions were created by the technologist. Automated exposure control and iterative reconst ruction technique were employed. The dose-length product was 255.42 mGy-cm. COMPARISON: Chest CT 12/27/2023, 08/10/18 FINDINGS: There is moderate emphysema. There are small pleural effusions. There is dependent atelecta sis on the right. There are airspace opacities in left lower lobe and lingula. There is a 15 mm nodul e in lingula, stable from 08/10/18, likely benign. There is septal thickening in the lungs, likely mil d pulmonary edema. There is mild left hilar and mediastinal lymphadenopathy. Cardiomegaly is noted. T here are coronary artery calcifications. No pericardial effusion. The central pulmonary is enlarged, consistent with pulmonary arterial hypertension. There is no pulmonary embolus. There are gallstones in the gallbladder, which is contracted. There is a chronic burst fracture of T5. There is thoracic k yphosis and mild spondylosis. IMPRESSION: 1. Mild pulmonary edema and small pleural effusions. 2. Moderate emphysema. 3. Airspace opacities in left lower lobe and lingula, consistent with atelectasis versus pneumonia. 4. No pulmonary embolus. 5. Mild left hilar and mediastinal lymphadenopathy, likely reactive. Reviewed, dictated and finalized at location A. IMPRESSION: 1. Mild pulmonary edema and small pleural effusions. 2. Moderate emphysema. 3. Airspace opacities in left lower lobe and lingula, consistent with atelectas is versus pneumonia. 4. No pulmonary embolus. 5. Mild left hilar and mediastinal lymphadenopathy, likely reactive.
--- NOTE | ~2024-01-09 | XR_ITS ---
EXAMINATION: XR chest 1V portable DATE: 01/11/2024 13:54 INDICATION: Shortness of breath. TECHNIQUE: A single frontal view of the chest was obtained. COMPARISON: Chest single view 01/09/2024, chest CT 12/27/2023 FINDINGS: There is a diffuse interstitial pattern. There are airspace opacities in right upper and lo wer lung zones and left lower lung zone. No pleural effusion or pneumothorax. The heart size is mindi l. IMPRESSION: 1. Worsening diffuse lung disease, consistent with pneumonia. Reviewed, dictated and finalized at location E.
--- NOTE | 2024-01-09 05:08 | ECG_ITS ---
Test Date: 2024-01-09 05:06:33 Measurements Intervals [place] Rate: 84 P: 84 TX: 199 QRS: 6 QRSD: 138 T: 38 QT: 402 QTc: 475 Interpretive Statements SINUS RHYTHM WITH FREQUENT SUPRAVENTRICULAR PREMATURE COMPLEXES RIGHT BUNDLE BRANCH BLOCK [120+ ms QRS DURATION, UPRIGHT V1, 40+ ms S IN I/aVL/V4/V5/V6] ABNORMAL ECG Compared to ECG 12/27/2023 03:49:07 Atrial fibrillation no longer present Electronically Signed On 01-09-2024 14:57:08 CDT by Valdo Kumar M.D.
[2024-01-09] MEDS: MAGNESIUM SULF 2 GM/WATER 50ML 2 GM/50 ML BAG IVPB (05:15)
[2024-01-09] MEDS: dexAMETHasone SOD PHOS INJ 10 MG/ML 1 ML VIAL IV PUSH (05:16)
[2024-01-09 05:27] LABS: Fractional Inspired Oxygen 36 %; HCO3 VBG 43.1 mEq/l (24.0-30.0); pH VBG 7.316 (7.300-7.400)
--- NOTE | 2024-01-09 05:30 | ED.SOB ---
HPI - SOB/Dyspnea General Chief Complaint: Shortness of Breath/Dyspnea Stated Complaint: RESPIRATORY DISTRESS Time Seen by Provider: 01/09/24 07:56 Source: patient and EMS Mode of arrival: EMS Limitations: no limitations History of Present Illness HPI Narrative: This is a 78-year-old male, with history of lung cancer, COPD, brought in by EMS from his assisted for shortness of breath. The patient reportedly awoke from sleep complaining of shortness of breath. EMS reports nursing staff noted that he was satting in the mid 80s on his baseline of 2 L. He was increased to 4 L by nasal cannula with improvement to the mid 90s. The patient states he has had cough productive of sputum without blood. He denies chest pain. He complains of shortness of breath and feels at approximately 50% of his normal. He has a current DNR with a focus on comfort care. He has no other complaints at this time. Related Data Home Medications Medication Instructions Recorded Confirmed albuterol sulfate 90 mcg/actuation 1 inh inhalation QID PRN Shortness 12/27/23 12/27/23 aerosol inhaler Of Breath Or Wheezing aspirin 81 mg tablet,delayed 81 mg PO DAILY 12/27/23 12/27/23 release brimonidine 0.2 % eye drops 1 drp EACH EYE TID 12/27/23 12/27/23 budesonide 160 mcg-glycopyr 9 2 inh inhalation BID 12/27/23 12/27/23 mcg-formot 4.8 mcg/actuation HFA inhaler (Breztri Aerosphere) clopidogrel 75 mg tablet 75 mg PO DAILY 12/27/23 12/27/23 empagliflozin 10 mg tablet 10 mg PO DAILY 12/27/23 12/27/23 (Jardiance) furosemide 20 mg tablet 20 mg PO DAILY PRN LEG SWELLING 12/27/23 12/27/23 ipratropium 0.5 mg-albuterol 3 mg 3 ml inhalation QID PRN Shortness 12/27/23 12/27/23 (2.5 mg base)/3 mL nebulization Of Breath Or Wheezing soln lisinopril 2.5 mg tablet 2.5 mg PO DAILY 12/27/23 12/27/23 metformin 500 mg tablet 500 mg PO BID 12/27/23 12/27/23 metoprolol succinate 25 mg 12.5 mg PO DAILY 12/27/23 12/27/23 tablet,extended release 24 hr mirtazapine 15 mg tablet 7.5 mg PO HS 12/27/23 12/27/23 sitagliptin phosphate 100 mg 100 mg PO DAILY 12/27/23 12/27/23 tablet (Januvia) Allergies Allergy/AdvReac Type Severity Reaction Status Date / Time No Known Allergies Allergy Mild Unverified 07/26/03 09:21 Review of Systems Review of Systems: All systems reviewed & are unremarkable except as noted in HPI and below PMFSH Past Medical History Medical History Acute and chronic respiratory failure with hypercapnia Acute and chronic respiratory failure with hypoxia Atherosclerotic heart disease of [place] coronary artery without angina pectoris Atrial fibrillation Chronic obstructive pulmonary disease, unspecified Chronic systolic (congestive) heart failure Essential (primary) hypertension Malignant neoplasm of lower lobe, left bronchus or lung Traumatic subarachnoid hemorrhage without loss of consciousness, initial encounter Type 2 diabetes mellitus with hyperglycemia Unspecified severe protein-calorie malnutrition Family History Family History Mother Family history of lung cancer Other Diabetes mellitus Social History Social History Smoking packs per day: 2 Smoking cigarettes per day: 40.0 Smoking status: Current every day smoker Alcohol intake: never Substance use: never Do You Feel Safe in your Home?: Yes Lack of Transportation: No Lack of Food: Never True Current Housing: I Have Housing Concerned About Future Housing: No Difficulty Paying Gas/Electric Bills: No Difficulty Paying for Meds: No Currently Unemployed: No Education: High School Diploma/GED Difficulty w/ Childcare or Family Care: No Living arrangements: assisted Additional living arrangements comments: [facility] Spiritual care concerns: No Exam Narrative:
[2024-01-09 05:32] LABS: Basophils Absolute Auto 0.1 K/mm3 (0.0-0.1); Basophils Percent Auto 0.6 % (0.2-1.2); Eosinophils Absolute Auto 0.3 K/mm3 (0-0.3); Eosinophils Percent Auto 2.6 % (0-4.4); Hematocrit 36.7 % (42.0-52.0); Immature Granulocyte Absolute 0.03 K/mm3 (0.00-0.031); Immature Granulocyte Percent A 0.3 % (0-0.5); Lymphocytes Absolute Auto 0.97 K/mm3 (0.9-3.2); Mean Corpuscular Hemoglobin 31.5 pg (26-34); Mean Corpuscular Volume 105.2 fl (80-100); Mean Platelet Volume 9.2 fl (7.4-10.4); Monocytes Percent Auto 10.6 % (2.6-8.5); Neutrophils Absolute Auto 7.4 K/mm3 (1.3-6.7); Neutrophils Percent Auto 75.9 % (45.5-73.1); Platelet Count Result 318 k/mm3 (150-375); Red Blood Count 3.49 M/mm3 (4.6-6.20); Red Cell Distribution Width 14.8 % (11.5-14.5); White Blood Count 9.7 K/mm3 (4.5-10.0)
[2024-01-09] MEDS: IPRATROPIUM 0.5 MG/ALBUTEROL SULFATE 2.5 MG AMPUL.NEB 3 ML 6 ML INHALATION (05:35)
[2024-01-09 05:44] LABS: Alanine Aminotransferase 20 U/L (6-50); Albumin Level 3.6 g/dL (3.5-5.1); Alkaline Phosphatase 139 U/L (38-126); Anisocytosis 1+; Aspartate Amino Transferase 24 U/L (17-59); Bilirubin,Total 0.6 mg/dL (0.2-1.3); Blood Urea Nitrogen 16 mg/dL (9-20); Calcium 8.3 mg/dL (8.4-10.2); Carbon Dioxide > 40 mmol/L (22-30); Chloride 91 mmol/L (98-107); Estimated CRCL calculation 117 ml/min; Estimated Glomerular Filt Rate > 60; Glucose 178 mg/dL (65-110); Hypochromasia 1+; Platelet Estimate Adequate (Adequate); Potassium 3.9 mmol/L (3.4-5.0); Schistocytes None Seen; Sodium 141 mmol/L (137-145); Stomatocytes 1+
[2024-01-09 05:52] LABS: Device NASAL CANNULA; NT Pro B Type Natriuretic Pept 4000 pg/mL (19.9-100); PCO2 VBG 86.3 mmHg (42.0-48.0); Troponin I 0.018 ng/mL (0.000-0.034)
[2024-01-09 06:09] LABS: Influenza A QL RT-PCR Negative (Negative); Influenza B QL RT-PCR Negative (Negative); RSV RNA, RT-PCR Negative (Negative); SARS-CoV-2 RNA PCR Negative (Negative)
[2024-01-09] MEDS: SODIUM CHLORIDE 0.9% IV 1,000 ML 999 ML IV CONT (06:25)
[2024-01-09] MEDS: CEFEPIME 2 GM/NS 50 ML 2 GM/50 ML BAG IVPB (06:26)
[2024-01-09] MEDS: ALBUTEROL SULFATE NEB 2.5 MG/3 ML INH 10 MG INHALATION (06:50)
[2024-01-09] MEDS: AZITHROMYCIN 500 MG/NS 250 ML 500 MG/250 ML BAG 250 MG IVPB (07:09)
[2024-01-09 08:46] LABS: Alveolar/Arterial O2 Gradient 108.2 mmHg; Base Excess ABG 9.5 mEq/l (+/-2.0); Fractional Inspired Oxygen 32 %; HCO3 ABG 34.7 mEq/l (22.0-26.0); Oxygen Saturation ABG 92.5 % (95.0-100.0); Oxyhemoglobin 92.9 % THb (90.0-100.0); PCO2 ABG 49.9 mmHg (35.0-45.0); PO2 ABG 61.6 mmHg (80.0-100.0); PO2 FiO2 Ratio Arterial Blood 1.92 %; Total Hemoglobin 11.5 g/dL (12.0-18.0)
[2024-01-09 08:48] LABS: Device NON-INVASIVE VENT; Modified Allen's Test Pass
[2024-01-09 08:49] LABS: Non-Invasive Expiratory Pressure 6 CMH2O; Non-Invasive Inspiratory Pressure 18 CMH2O; Non-Invasive Vent Rate 24 /MIN; Site Drawn LEFT RADIAL
--- NOTE | 2024-01-09 10:06 | PC.NURSE ---
Dr Hendricks spoke with pt's contact in the chart - sibling Ms Altman at [phone]. She states that pt has a POA of either son or daughter and will contact them in regards to Hospice and level of care.
--- NOTE | 2024-01-09 11:30 | ADMGEN ---
This patient, Heriberto Duran, was admitted to 2 Medical Room 242-. Patient/family oriented to hospital policies and general routines including ID bracelet, bed and alarms, visiting hours, pain management, procedures, bathroom and other care routines, personal items, smoking policy, room service/diet, and visiting hours. Information on how to activate the Rapid Response Team has been discussed. Patient/Family are encouraged to report perceived risks to care and to ask questions if they do not understand what they are told or what they should do.
--- NOTE | 2024-01-09 12:12 | PC.NURSE ---
Received in report from ER that patient and family were agreeing for patient to be admitted under comfort care with a consult made to hospice. Patient taken off of Bipap and tolerating 2L NC. Upon receiving patient, patient and daughter/POA are upset and confused about comfort code status and hospice consult. Left message for Dr. Staples to come speak with patient/POA regarding confusion. federal aid coordinator also attempting to get ahold of [place]. Patient still wishes to be DNR.
--- NOTE | 2024-01-09 13:45 | PM.IMHP ---
H&P: HPI History of Present Illness Date/Time: 01/09/24 13:45 Chief Complaint: Shortness of breath Narrative: This is a 78-year-old male with history of lung cancer COPD brought in from nursing facility for shortness of breath. Patient apparently woke from sleep complaining of shortness of breath this a.m. nursing staff checked his saturation was in mid 80s on his baseline 2 L oxygen. His oxygen requirement was bumped up to 4 L with improvement in his oxygen saturation. EMS was then called and was brought to the hospital for evaluation. He reports cough with productive sputum without blood no chest pain. He was initially placed on BiPAP in the ER. Rule suspected here COPD exacerbation. Received nebulizer treatment IV steroid and magnesium. VBG was done which showed CO2 of 86 with pH of 7.31 and hence was started on BiPAP. Revaluation patient will better BNP was elevated at 4000. Initial troponin was negative. CBC with mild anemia with hemoglobin of 11 otherwise unremarkable. Mildly hypocalcemic. EKG with nonspecific ST-T changes. Chest x-ray with COPD changes with possible pneumonia. Patient tested negative for influenza RSV and COVID. BiPAP was later tapered off. Placed on nasal cannula oxygen. Patient is admitted in the setting for further treatment. Review of Systems Review of Systems: - CONSTITUTIONAL: Denies weight loss, fever and chills. - HEENT: Denies changes in vision and hearing - RESPIRATORY: Reports SOB and cough. - CV: Denies palpitations and CP. - GI: Denies abdominal pain, nausea, vomiting and diarrhea. - : Denies dysuria and urinary frequency. - MSK: Denies myalgia and joint pain. - SKIN: Denies rash and pruritus. - NEUROLOGICAL: Denies headache and syncope. - PSYCHIATRIC: Denies recent changes in mood. Denies anxiety and depression. FORMERLY [facility], [facility] Past Medical History Medical History Acute and chronic respiratory failure with hypercapnia Acute and chronic respiratory failure with hypoxia Atherosclerotic heart disease of [place] coronary artery without angina pectoris Atrial fibrillation Chronic obstructive pulmonary disease, unspecified Chronic systolic (congestive) heart failure Essential (primary) hypertension Malignant neoplasm of lower lobe, left bronchus or lung Traumatic subarachnoid hemorrhage without loss of consciousness, initial encounter Type 2 diabetes mellitus with hyperglycemia Unspecified severe protein-calorie malnutrition Family History Family History Mother Family history of lung cancer Other Diabetes mellitus Social History Social History Smoking packs per day: 2 Smoking cigarettes per day: 40.0 Smoking status: Current every day smoker Alcohol intake: never Substance use: never Do You Feel Safe in your Home?: Yes Lack of Transportation: No Lack of Food: Never True Current Housing: I Have Housing Concerned About Future Housing: No Difficulty Paying Gas/Electric Bills: No Difficulty Paying for Meds: No Currently Unemployed: No Education: High School Diploma/GED Difficulty w/ Childcare or Family Care: No [facility] [facility] Additional living arrangements comments: [facility] Spiritual care concerns: No Meds Home Medications and Allergies Home Medications Medication Instructions Recorded Confirmed Type albuterol sulfate 90 mcg/actuation 1 inh inhalation QID PRN Shortness 12/27/23 01/09/24 History aerosol inhaler Of Breath Or Wheezing aspirin 81 mg tablet,delayed 81 mg PO DAILY 12/27/23 01/09/24 History release brimonidine 0.2 % eye drops 1 drp EACH EYE TID 12/27/23 01/09/24 History budesonide 160 mcg-glycopyr 9 2 inh inhalation BID 12/27/23 01/09/24 History mcg-formot 4.8 mcg/actuation HFA inhaler (Breztri Aero
[2024-01-09] MEDS: CEFEPIME 1 GM/NS 50 ML 1 GM/50 ML BAG IVPB ×2 (14:53→21:07)
[2024-01-09 15:17] LABS: Procalcitonin 0.1 ng/mL
[2024-01-09] MEDS: BRIMONIDINE TARTRATE 0.2% OP SOLN 5 ML BTL 1 DROP EACH EYE (17:11)
[2024-01-09] MEDS: IPRATROPIUM 0.5 MG/ALBUTEROL SULFATE 2.5 MG AMPUL.NEB 3 ML INHALATION (19:11)
[2024-01-09 19:39] LABS: Hemoglobin A1C 7.6 % (<5.7)
[2024-01-09] MEDS: MIRTAZAPINE 7.5 MG TABLET PO (21:07)
[2024-01-09] MEDS: INSULIN ASPART (*BKC) 100 UNITS/ML SUB-Q (21:10)
[2024-01-09 21:19] LABS: Glucose Point of Care 309 mg/dl (65-105)
[2024-01-10] VITALS (19 sets, daily range): BP systolic 108–137; BP diastolic 55–78; PULSE 65–97; RESP 18–24; TEMP 36.1–36.7; O2SAT 88–99
[2024-01-10] MEDS: IPRATROPIUM 0.5 MG/ALBUTEROL SULFATE 2.5 MG AMPUL.NEB 3 ML INHALATION ×4 (02:37→19:59)
[2024-01-10] MEDS: LORazepam INJ (*CRX) 2 MG/ML VIAL 1 MG IV PUSH (03:12)
[2024-01-10] MEDS: MORPHINE SULFATE (*CRX) 4 MG/ML INJ 1 MG IV PUSH (03:13)
[2024-01-10 04:49] LABS: Basophils Absolute Auto 0.1 K/mm3 (0.0-0.1); Basophils Percent Auto 0.7 % (0.2-1.2); Eosinophils Absolute Auto 0.3 K/mm3 (0-0.3); Eosinophils Percent Auto 3.8 % (0-4.4); Hematocrit 33.5 % (42.0-52.0); Hemoglobin 9.7 g/dL (14.0-18.0); Immature Granulocyte Absolute 0.03 K/mm3 (0.00-0.031); Immature Granulocyte Percent A 0.4 % (0-0.5); Lymphocytes Absolute Auto 1.08 K/mm3 (0.9-3.2); Mean Corpuscular Hemoglobin 30.2 pg (26-34); Mean Corpuscular Volume 104.4 fl (80-100); Mean Platelet Volume 9.3 fl (7.4-10.4); Monocytes Absolute Auto 0.8 K/mm3 (0.1-0.6); Monocytes Percent Auto 11.8 % (2.6-8.5); Neutrophils Absolute Auto 4.6 K/mm3 (1.3-6.7); Neutrophils Percent Auto 67.3 % (45.5-73.1); Platelet Count Result 278 k/mm3 (150-375); Red Blood Count 3.21 M/mm3 (4.6-6.20); Red Cell Distribution Width 14.9 % (11.5-14.5); White Blood Count 6.8 K/mm3 (4.5-10.0)
[2024-01-10 05:05] LABS: Alanine Aminotransferase 17 U/L (6-50); Albumin Level 3.1 g/dL (3.5-5.1); Alkaline Phosphatase 116 U/L (38-126); Aspartate Amino Transferase 20 U/L (17-59); Bilirubin,Total 0.5 mg/dL (0.2-1.3); Blood Urea Nitrogen 18 mg/dL (9-20); Calcium 7.8 mg/dL (8.4-10.2); Carbon Dioxide > 40 mmol/L (22-30); Chloride 94 mmol/L (98-107); Estimated CRCL calculation 96 ml/min; Estimated Glomerular Filt Rate > 60; Glucose 135 mg/dL (65-110); Magnesium 2.2 mg/dL (1.6-2.3); Potassium 3.9 mmol/L (3.4-5.0); Sodium 138 mmol/L (137-145)
[2024-01-10] MEDS: CEFEPIME 1 GM/NS 50 ML 1 GM/50 ML BAG IVPB ×3 (06:03→22:19)
[2024-01-10] MEDS: AZITHROMYCIN 500 MG/NS 250 ML 500 MG/250 ML BAG 125 MG IVPB (06:40)
[2024-01-10] MEDS: FLUTICASONE/UMECLIDIN/VILANTER 100-62.5-25 MCG ELLIPTA 1 PUFF INHALATION (07:52)
[2024-01-10 07:56] LABS: Glucose Point of Care 136 mg/dl (65-105)
[2024-01-10] MEDS: NICOTINE (*PBKC) 21 MG PATCH 1 PATCH TRANSDERM (08:28)
[2024-01-10] MEDS: BRIMONIDINE TARTRATE 0.2% OP SOLN 5 ML BTL 1 DROP EACH EYE ×3 (08:28→17:08)
[2024-01-10] MEDS: dexAMETHasone SOD PHOS INJ 10 MG/ML 1 ML VIAL 6 MG IV PUSH (08:29)
[2024-01-10] MEDS: SITagliptin PHOSPHATE 100 MG TABLET PO (08:29)
[2024-01-10] MEDS: METOPROLOL SUCCINATE EXT REL 12.5 MG TABCR PO (08:29)
[2024-01-10] MEDS: EMPAGLIFLOZIN 10 MG TABLET PO (08:30)
[2024-01-10] MEDS: lisinopriL 2.5 MG TABLET PO (08:30)
[2024-01-10] MEDS: ASCORBIC ACID 500 MG TABLET PO (08:30)
[2024-01-10] MEDS: CLOPIDOGREL BISULFATE 75 MG TABLET PO (08:30)
[2024-01-10] MEDS: ASPIRIN 81 MG ENTERIC TABLET PO (08:30)
[2024-01-10] MEDS: ENOXAPARIN 40 MG/0.4 ML SYRINGE SUB-Q (08:30)
--- NOTE | 2024-01-10 11:07 | PM.IMPN ---
Progress Note: A&P Assessment and Plan (1) Acute hypoxic on chronic hypercapnic respiratory failure: Code(s): J96.01 - Acute respiratory failure with hypoxia; J96.12 - Chronic respiratory failure with hypercapnia Status: Acute (2) Atrial fibrillation: Code(s): I48.91 - Unspecified atrial fibrillation Status: Acute (3) Anemia, macrocytic: Code(s): D53.9 - Nutritional anemia, unspecified Status: Acute (4) Pneumonia: Qualifiers: Laterality: bilateral Lung location: lower lobe of lung Code(s): J18.9 - Pneumonia, unspecified organism Status: Acute (5) Lung nodule: Code(s): R91.1 - Solitary pulmonary nodule Status: Acute (6) COPD exacerbation: Code(s): J44.1 - Chronic obstructive pulmonary disease with (acute) exacerbation Status: Acute Plan This is a 78-year-old male with history of lung cancer COPD brought in from nursing facility for shortness of breath. Patient apparently woke from sleep complaining of shortness of breath this a.m. nursing staff checked his saturation was in mid 80s on his baseline 2 L oxygen. His oxygen requirement was bumped up to 4 L with improvement in his oxygen saturation. EMS was then called and was brought to the hospital for evaluation. He reports cough with productive sputum without blood no chest pain. He was initially placed on BiPAP in the ER. Rule suspected here COPD exacerbation. Received nebulizer treatment IV steroid and magnesium. VBG was done which showed CO2 of 86 with pH of 7.31 and hence was started on BiPAP. Revaluation patient will better BNP was elevated at 4000. Initial troponin was negative. CBC with mild anemia with hemoglobin of 11 otherwise unremarkable. Mildly hypocalcemic. EKG with nonspecific ST-T changes. Chest x-ray with COPD changes with stable nonspecific haziness left lung base. Patient tested negative for influenza RSV and COVID. BiPAP was later tapered off. Placed on nasal cannula oxygen. Patient is admitted in the setting for further treatment. Acute hypoxic/hypercapnic respiratory failure initial blood gas was VBG unclear if he has true hypercapnic respiratory failure are just hypoxic. ABG repeat with pCO2 of 49 but this is after BiPAP treatment Recent CTA negative for PE but was positive for consolidation on the left greater than right. Pneumonia azithromycin cefepime recent nasal MRSA negative. Advanced COPD on home oxygen with chronic hypercapnic resp failure. was arrranged for home bipap at last discahrge from [place] History of non-small cell lung cancer of left lower lobe status post empiric SBRT History of subarachnoid hemorrhage 12/2023 Hypercapnic respiratory failure on CPAP at home pulmonary seen him and was placed on BiPAP/AVAPS. will keep on BIPAP at night and during naps Type 2 diabetes mellitus SSI a1c 7.6 CAD status post TIM 09/2022 on aspirin and plavix and statin Chronic systolic CHF EF 35% was on aspirin and Plavix. Heart failure with reduced ejection fraction on Jardiance and Lasix as needed lisinopril and metoprolol Age indeterminate but fracture of T5 History of dementia Chronic AFib he had deferred anticoagulation for AFib DVT prophylaxis Lovenox Code status do not resuscitate Subjective Date/time seen: 01/10/24 11:07 Interval history: the patient did not sleep all nigght, he is a bit sleepy this am, oxgyen requirements stable. Review of Systems Review of Systems: All systems reviewed & are unremarkable except as noted in HPI and below Exam Narrative: GENERAL: Thin built, in no acute distress HEAD: Normocephalic, atraumatic. EYES: PERRLA and EOMI. ENT: Nares clear, no rhinorrhea or epistaxis. Mucous membranes moist. NECK: Supple. No JVD CHEST: Diminished breath sounds bilaterally with rhonchi No respiratory distress. HEART: Regular rate and rhythm. No murmur heard. Normal peripheral pulses. ABDOMEN: Soft, nontender, nondistended, normal activ
[2024-01-10 11:54] LABS: Glucose Point of Care 174 mg/dl (65-105)
--- NOTE | 2024-01-10 13:52 | PCOTNOTE ---
Attempted OT evaluation; per RN pt. was up all night and is finally resting. Requested to hold until tomorrow morning.
--- NOTE | 2024-01-10 15:19 | PCPTNOTE ---
attempted PT denisal, pt agreed to participate but then fell asleep mid-sentence during taking subjective history, RN states he has not slept well for the past 4 days, will follow when pt can stay alert
[2024-01-10 17:04] LABS: Glucose Point of Care 264 mg/dl (65-105)
[2024-01-10] MEDS: INSULIN ASPART (*BKC) 100 UNITS/ML SUB-Q ×2 (17:08→20:43)
[2024-01-10] MEDS: MIRTAZAPINE 7.5 MG TABLET PO (20:42)
[2024-01-11] VITALS (18 sets, daily range): BP systolic 98–109; BP diastolic 55–63; PULSE 72–91; RESP 16–29; TEMP 36.3–36.4; O2SAT 85–98
[2024-01-11] MEDS: IPRATROPIUM 0.5 MG/ALBUTEROL SULFATE 2.5 MG AMPUL.NEB 3 ML INHALATION ×4 (02:02→20:11)
[2024-01-11 03:25] LABS: Glucose Point of Care 295 mg/dl (65-105)
[2024-01-11 04:58] LABS: Basophils Percent Auto 0.4 % (0.2-1.2); Eosinophils Absolute Auto 0.3 K/mm3 (0-0.3); Eosinophils Percent Auto 3.7 % (0-4.4); Hematocrit 33.3 % (42.0-52.0); Hemoglobin 9.9 g/dL (14.0-18.0); Immature Granulocyte Absolute 0.03 K/mm3 (0.00-0.031); Immature Granulocyte Percent A 0.4 % (0-0.5); Lymphocytes Absolute Auto 0.95 K/mm3 (0.9-3.2); Lymphocytes Percent Auto 13.9 % (18.3-44.2); Mean Corpuscular HGB Conc 29.7 g/dl (32-36); Mean Corpuscular Hemoglobin 31.4 pg (26-34); Mean Corpuscular Volume 105.7 fl (80-100); Mean Platelet Volume 9.3 fl (7.4-10.4); Monocytes Absolute Auto 0.8 K/mm3 (0.1-0.6); Monocytes Percent Auto 11.7 % (2.6-8.5); Neutrophils Absolute Auto 4.8 K/mm3 (1.3-6.7); Neutrophils Percent Auto 69.9 % (45.5-73.1); Platelet Count Result 282 k/mm3 (150-375); Red Blood Count 3.15 M/mm3 (4.6-6.20); Red Cell Distribution Width 15.1 % (11.5-14.5); White Blood Count 6.8 K/mm3 (4.5-10.0)
[2024-01-11 05:27] LABS: Alanine Aminotransferase 15 U/L (6-50); Albumin Level 2.9 g/dL (3.5-5.1); Alkaline Phosphatase 118 U/L (38-126); Aspartate Amino Transferase 17 U/L (17-59); Bilirubin,Total 0.3 mg/dL (0.2-1.3); Blood Urea Nitrogen 24 mg/dL (9-20); Calcium 8.1 mg/dL (8.4-10.2); Carbon Dioxide > 40 mmol/L (22-30); Chloride 93 mmol/L (98-107); Estimated CRCL calculation 71 ml/min; Estimated Glomerular Filt Rate > 60; Glucose 209 mg/dL (65-110); Potassium 4.8 mmol/L (3.4-5.0); Sodium 138 mmol/L (137-145)
[2024-01-11] MEDS: CEFEPIME 1 GM/NS 50 ML 1 GM/50 ML BAG IVPB ×3 (06:01→21:29)
[2024-01-11] MEDS: ALBUTEROL SULFATE (*SP) AEROSOL 1 PUFF INHALATION (06:04)
[2024-01-11] MEDS: AZITHROMYCIN 500 MG/NS 250 ML 500 MG/250 ML BAG 250 MG IVPB (06:41)
[2024-01-11] MEDS: FLUTICASONE/UMECLIDIN/VILANTER 100-62.5-25 MCG ELLIPTA 1 PUFF INHALATION (07:36)
--- NOTE | 2024-01-11 08:27 | PCPTNOTE ---
attempted PT evaluation, pt finishing up with respiratory therapist, per respiratory therapist pt is satting at 86-90% on 4L and is trying to catch his breath and states he is not appropriate at this time, will attempt again at a later time
[2024-01-11 09:08] LABS: Glucose Point of Care 343 mg/dl (65-105)
[2024-01-11] MEDS: INSULIN ASPART (*BKC) 100 UNITS/ML SUB-Q ×2 (09:17→17:10)
[2024-01-11] MEDS: ASCORBIC ACID 500 MG TABLET PO (09:20)
[2024-01-11] MEDS: dexAMETHasone SOD PHOS INJ 10 MG/ML 1 ML VIAL 6 MG IV PUSH (09:21)
[2024-01-11] MEDS: lisinopriL 2.5 MG TABLET PO (09:21)
[2024-01-11] MEDS: ASPIRIN 81 MG ENTERIC TABLET PO (09:21)
[2024-01-11] MEDS: CLOPIDOGREL BISULFATE 75 MG TABLET PO (09:21)
[2024-01-11] MEDS: EMPAGLIFLOZIN 10 MG TABLET PO (09:21)
[2024-01-11] MEDS: SITagliptin PHOSPHATE 100 MG TABLET PO (09:21)
[2024-01-11] MEDS: ENOXAPARIN 40 MG/0.4 ML SYRINGE SUB-Q (09:21)
[2024-01-11] MEDS: NICOTINE (*PBKC) 21 MG PATCH 1 PATCH TRANSDERM (09:21)
[2024-01-11] MEDS: METOPROLOL SUCCINATE EXT REL 12.5 MG TABCR PO (09:22)
[2024-01-11] MEDS: BRIMONIDINE TARTRATE 0.2% OP SOLN 5 ML BTL 1 DROP EACH EYE ×3 (09:24→17:08)
--- NOTE | 2024-01-11 11:59 | PM.IMPN ---
Progress Note: A&P Assessment and Plan (1) Acute hypoxic on chronic hypercapnic respiratory failure: Code(s): J96.01 - Acute respiratory failure with hypoxia; J96.12 - Chronic respiratory failure with hypercapnia Status: Acute (2) Atrial fibrillation: Code(s): I48.91 - Unspecified atrial fibrillation Status: Acute (3) Anemia, macrocytic: Code(s): D53.9 - Nutritional anemia, unspecified Status: Acute (4) Pneumonia: Qualifiers: Laterality: bilateral Lung location: lower lobe of lung Code(s): J18.9 - Pneumonia, unspecified organism Status: Acute (5) Lung nodule: Code(s): R91.1 - Solitary pulmonary nodule Status: Acute (6) COPD exacerbation: Code(s): J44.1 - Chronic obstructive pulmonary disease with (acute) exacerbation Status: Acute Plan This is a 78-year-old male with history of lung cancer COPD brought in from nursing facility for shortness of breath. Patient apparently woke from sleep complaining of shortness of breath this a.m. nursing staff checked his saturation was in mid 80s on his baseline 2 L oxygen. His oxygen requirement was bumped up to 4 L with improvement in his oxygen saturation. EMS was then called and was brought to the hospital for evaluation. He reports cough with productive sputum without blood no chest pain. He was initially placed on BiPAP in the ER. Rule suspected here COPD exacerbation. Received nebulizer treatment IV steroid and magnesium. VBG was done which showed CO2 of 86 with pH of 7.31 and hence was started on BiPAP. Revaluation patient will better BNP was elevated at 4000. Initial troponin was negative. CBC with mild anemia with hemoglobin of 11 otherwise unremarkable. Mildly hypocalcemic. EKG with nonspecific ST-T changes. Chest x-ray with COPD changes with stable nonspecific haziness left lung base. Patient tested negative for influenza RSV and COVID. BiPAP was later tapered off. Placed on nasal cannula oxygen. Patient is admitted in the setting for further treatment. Acute hypoxic/hypercapnic respiratory failure initial blood gas was VBG unclear if he has true hypercapnic respiratory failure are just hypoxic. ABG repeat with pCO2 of 49 but this is after BiPAP treatment Recent CTA negative for PE but was positive for consolidation on the left greater than right. Pneumonia azithromycin cefepime recent nasal MRSA negative. Advanced COPD on home oxygen with chronic hypercapnic resp failure. was arrranged for home bipap at last discahrge from [place] History of non-small cell lung cancer of left lower lobe status post empiric SBRT History of subarachnoid hemorrhage 12/2023 Hypercapnic respiratory failure on CPAP at home pulmonary seen him and was placed on BiPAP/AVAPS. will keep on BIPAP at night and during naps recheck ABG and chest x-ray Type 2 diabetes mellitus SSI a1c 7.6 CAD status post TIM 09/2022 on aspirin and plavix and statin Chronic systolic CHF EF 35% was on aspirin and Plavix. Heart failure with reduced ejection fraction on Jardiance and Lasix as needed lisinopril and metoprolol Age indeterminate but fracture of T5 History of dementia Chronic AFib he had deferred anticoagulation for AFib DVT prophylaxis Lovenox Code status do not resuscitate Subjective Date/time seen: 01/11/24 11:59 Interval history: Feels bit short of breath. Did not use BiPAP last night. Labs reviewed. Discussed with Nursing staff Review of Systems Review of Systems: All systems reviewed & are unremarkable except as noted in HPI and below Exam Narrative: GENERAL: Thin built, in no acute distress HEAD: Normocephalic, atraumatic. EYES: PERRLA and EOMI. ENT: Nares clear, no rhinorrhea or epistaxis. Mucous membranes moist. NECK: Supple. No JVD CHEST: Diminished breath sounds bilaterally no wheezes or rhonchi No respiratory distress. HEART: Regular rate and rhythm. No murmur heard. Normal peripheral pulses. ABDOM
[2024-01-11 12:19] LABS: Glucose Point of Care 136 mg/dl (65-105)
[2024-01-11 12:43] LABS: Alveolar/Arterial O2 Gradient 93.4 mmHg; Base Excess ABG 13.7 mEq/l (+/-2.0); Fractional Inspired Oxygen 36 %; HCO3 ABG 42.3 mEq/l (22.0-26.0); Oxygen Content ABG 15.5 %vol (16.0-22.0); Oxygen Saturation ABG 93.2 % (95.0-100.0); Oxyhemoglobin 94.4 % THb (90.0-100.0); PO2 FiO2 Ratio Arterial Blood 2.03 %; Total Hemoglobin 11.6 g/dL (12.0-18.0); pH ABG 7.353 (7.350-7.450)
[2024-01-11 12:50] LABS: Device NASAL CANNULA; Modified Allen's Test Pass; PCO2 ABG 77.8 mmHg (35.0-45.0); Site Drawn LEFT RADIAL
[2024-01-11] MEDS: INSULIN ASPART (*BKC) 100 UNITS/ML 6 UNITS SUB-Q (17:11)
[2024-01-11 17:18] LABS: Glucose Point of Care 263 mg/dl (65-105)
[2024-01-11 17:56] LABS: NT Pro B Type Natriuretic Pept 2820 pg/mL (19.9-100)
[2024-01-11 19:42] LABS: MRSA (PCR) NOT DETECTED (NOT DETECTE)
[2024-01-11] MEDS: INSULIN GLARGINE (*BKC) 100 UNITS/ML 17 UNITS SUB-Q (20:39)
[2024-01-11] MEDS: MIRTAZAPINE 7.5 MG TABLET PO (20:39)
[2024-01-11] MEDS: QUEtiapine FUMARATE 25 MG TABLET PO (20:39)
[2024-01-11 20:58] LABS: Glucose Point of Care 192 mg/dl (65-105)
[2024-01-12] VITALS (13 sets, daily range): BP systolic 93–115; BP diastolic 51–57; PULSE 64–73; RESP 18–28; TEMP 36.1–36.7; O2SAT 92–100
--- NOTE | 2024-01-12 03:59 | PCRCNOTE ---
Patient was confused and agitated last night, refusing bipap and 0200 updraft treatment.
[2024-01-12 05:15] LABS: Basophils Percent Auto 0.8 % (0.2-1.2); Eosinophils Absolute Auto 0.2 K/mm3 (0-0.3); Eosinophils Percent Auto 3.5 % (0-4.4); Hematocrit 31.3 % (42.0-52.0); Hemoglobin 9.3 g/dL (14.0-18.0); Immature Granulocyte Absolute 0.02 K/mm3 (0.00-0.031); Immature Granulocyte Percent A 0.4 % (0-0.5); Lymphocytes Absolute Auto 1.02 K/mm3 (0.9-3.2); Lymphocytes Percent Auto 19.8 % (18.3-44.2); Mean Corpuscular HGB Conc 29.7 g/dl (32-36); Mean Corpuscular Hemoglobin 30.9 pg (26-34); Mean Platelet Volume 9.2 fl (7.4-10.4); Monocytes Absolute Auto 0.6 K/mm3 (0.1-0.6); Monocytes Percent Auto 11.3 % (2.6-8.5); Neutrophils Absolute Auto 3.3 K/mm3 (1.3-6.7); Neutrophils Percent Auto 64.2 % (45.5-73.1); Platelet Count Result 269 k/mm3 (150-375); Red Blood Count 3.01 M/mm3 (4.6-6.20); Red Cell Distribution Width 14.9 % (11.5-14.5); White Blood Count 5.2 K/mm3 (4.5-10.0)
[2024-01-12 05:41] LABS: Alanine Aminotransferase 13 U/L (6-50); Albumin Level 2.8 g/dL (3.5-5.1); Alkaline Phosphatase 90 U/L (38-126); Aspartate Amino Transferase 19 U/L (17-59); Bilirubin,Total 0.4 mg/dL (0.2-1.3); Blood Urea Nitrogen 19 mg/dL (9-20); Calcium 7.8 mg/dL (8.4-10.2); Carbon Dioxide > 40 mmol/L (22-30); Chloride 92 mmol/L (98-107); Estimated CRCL calculation 96 ml/min; Estimated Glomerular Filt Rate > 60; Glucose 67 mg/dL (65-110); Potassium 3.9 mmol/L (3.4-5.0); Sodium 136 mmol/L (137-145)
[2024-01-12] MEDS: CEFEPIME 1 GM/NS 50 ML 1 GM/50 ML BAG IVPB (05:52)
[2024-01-12 05:58] LABS: Anisocytosis 1+; Hypochromasia 1+; Platelet Estimate Adequate (Adequate); Schistocytes None Seen
[2024-01-12] MEDS: AZITHROMYCIN 500 MG/NS 250 ML 500 MG/250 ML BAG 250 MG IVPB (06:25)
[2024-01-12] MEDS: IPRATROPIUM 0.5 MG/ALBUTEROL SULFATE 2.5 MG AMPUL.NEB 3 ML INHALATION ×3 (07:00→21:43)
[2024-01-12] MEDS: FLUTICASONE/UMECLIDIN/VILANTER 100-62.5-25 MCG ELLIPTA 1 PUFF INHALATION (07:00)
[2024-01-12 07:52] LABS: Glucose Point of Care 69 mg/dl (65-105)
[2024-01-12] MEDS: GLUCOSE ORAL GEL 15 GM OF GLUCSE IN 37.5 GM TUBE PO ×2 (08:02→08:42)
[2024-01-12] MEDS: lisinopriL 2.5 MG TABLET PO (08:36)
[2024-01-12] MEDS: METOPROLOL SUCCINATE EXT REL 12.5 MG TABCR PO (08:36)
[2024-01-12] MEDS: ASCORBIC ACID 500 MG TABLET PO (08:36)
[2024-01-12] MEDS: SITagliptin PHOSPHATE 100 MG TABLET PO (08:36)
[2024-01-12] MEDS: CLOPIDOGREL BISULFATE 75 MG TABLET PO (08:36)
[2024-01-12] MEDS: ASPIRIN 81 MG ENTERIC TABLET PO (08:36)
[2024-01-12] MEDS: dexAMETHasone SOD PHOS INJ 10 MG/ML 1 ML VIAL 6 MG IV PUSH (08:37)
[2024-01-12] MEDS: ENOXAPARIN 40 MG/0.4 ML SYRINGE SUB-Q (08:37)
[2024-01-12] MEDS: NICOTINE (*PBKC) 21 MG PATCH 1 PATCH TRANSDERM (08:39)
[2024-01-12 08:40] LABS: Glucose Point of Care 54 mg/dl (65-105)
[2024-01-12] MEDS: BRIMONIDINE TARTRATE 0.2% OP SOLN 5 ML BTL 1 DROP EACH EYE ×3 (08:40→17:04)
[2024-01-12 09:26] LABS: Glucose Point of Care 104 mg/dl (65-105)
[2024-01-12] MEDS: FUROSEMIDE INJ 40 MG/4 ML VIAL 20 MG IV PUSH (09:47)
[2024-01-12 11:53] LABS: Glucose Point of Care 131 mg/dl (65-105)
--- NOTE | 2024-01-12 12:17 | PM.IMPN ---
Progress Note: A&P Assessment and Plan (1) Acute hypoxic on chronic hypercapnic respiratory failure: Code(s): J96.01 - Acute respiratory failure with hypoxia; J96.12 - Chronic respiratory failure with hypercapnia Status: Acute (2) Atrial fibrillation: Code(s): I48.91 - Unspecified atrial fibrillation Status: Acute (3) Anemia, macrocytic: Code(s): D53.9 - Nutritional anemia, unspecified Status: Acute (4) Pneumonia: Qualifiers: Laterality: bilateral Lung location: lower lobe of lung Code(s): J18.9 - Pneumonia, unspecified organism Status: Acute (5) Lung nodule: Code(s): R91.1 - Solitary pulmonary nodule Status: Acute (6) COPD exacerbation: Code(s): J44.1 - Chronic obstructive pulmonary disease with (acute) exacerbation Status: Acute Plan This is a 78-year-old male with history of lung cancer COPD brought in from nursing facility for shortness of breath. Patient apparently woke from sleep complaining of shortness of breath this a.m. nursing staff checked his saturation was in mid 80s on his baseline 2 L oxygen. His oxygen requirement was bumped up to 4 L with improvement in his oxygen saturation. EMS was then called and was brought to the hospital for evaluation. He reports cough with productive sputum without blood no chest pain. He was initially placed on BiPAP in the ER. Rule suspected here COPD exacerbation. Received nebulizer treatment IV steroid and magnesium. VBG was done which showed CO2 of 86 with pH of 7.31 and hence was started on BiPAP. Revaluation patient will better BNP was elevated at 4000. Initial troponin was negative. CBC with mild anemia with hemoglobin of 11 otherwise unremarkable. Mildly hypocalcemic. EKG with nonspecific ST-T changes. Chest x-ray with COPD changes with stable nonspecific haziness left lung base. Patient tested negative for influenza RSV and COVID. BiPAP was later tapered off. Placed on nasal cannula oxygen. Patient is admitted in the setting for further treatment. Acute hypoxic/hypercapnic respiratory failure initial blood gas was VBG unclear if he has true hypercapnic respiratory failure are just hypoxic. ABG repeat with pCO2 of 49 but this is after BiPAP treatment Recent CTA negative for PE but was positive for consolidation on the left greater than right. Pneumonia azithromycin cefepime recent nasal MRSA negative. Switched to oral. CTA negative PE may be mild pulmonary edema will give a dose of Lasix IV Advanced COPD on home oxygen with chronic hypercapnic resp failure. was arrranged for home bipap at last discahrge from [place] History of non-small cell lung cancer of left lower lobe status post empiric SBRT History of subarachnoid hemorrhage 12/2023 Hypercapnic respiratory failure on CPAP at home pulmonary seen him and was placed on BiPAP/AVAPS. will keep on BIPAP at night and during naps recheck ABG and chest x-ray. he has got noncompliance with his BiPAP treatment. switch to AVAPS?. this comes from Dr. Scott. will have pulmoanry consulted to further evaluation Type 2 diabetes mellitus SSI a1c 7.6 CAD status post TIM 09/2022 on aspirin and plavix and statin Chronic systolic CHF EF 35% was on aspirin and Plavix. Heart failure with reduced ejection fraction on Jardiance and Lasix as needed lisinopril and metoprolol Age indeterminate but fracture of T5 History of dementia Chronic AFib he had deferred anticoagulation for AFib DVT prophylaxis Lovenox Code status do not resuscitate Subjective Date/time seen: 01/12/24 12:17 Interval history: He feels little better today. Shortness of breath with exertion. Does not use BiPAP for long Review of Systems Review of Systems: All systems reviewed & are unremarkable except as noted in HPI and below Exam Narrative: GENERAL: Thin built, in no acute distress HEAD: Normocephalic, atraumatic. EYES: PERRLA and EOMI. ENT: Nares clear, no rhinorrhea
[2024-01-12] MEDS: AMOXICILLIN/CLAVULANATE K 875-125 MG TAB 1 TABLET PO ×2 (12:30→20:55)
--- NOTE | 2024-01-12 13:32 | PCPTNOTE ---
On 01/12/24, the student, [Cherie Spencer], provided care and completed [facility] documentation on this patient. I have reviewed the student's documentation and agree with the findings.
[2024-01-12 16:45] LABS: Glucose Point of Care 200 mg/dl (65-105)
[2024-01-12] MEDS: INSULIN ASPART (*BKC) 100 UNITS/ML 6 UNITS SUB-Q (17:05)
[2024-01-12 20:34] LABS: Glucose Point of Care 124 mg/dl (65-105)
[2024-01-12] MEDS: QUEtiapine FUMARATE 25 MG TABLET PO (20:55)
[2024-01-12] MEDS: MIRTAZAPINE 7.5 MG TABLET PO (20:55)
[2024-01-12] MEDS: INSULIN GLARGINE (*BKC) 100 UNITS/ML 10 UNITS SUB-Q (20:56)
[2024-01-13] VITALS (17 sets, daily range): BP systolic 101–123; BP diastolic 48–71; PULSE 61–80; RESP 17–28; TEMP 36.5–36.8; O2SAT 91–100
[2024-01-13] MEDS: IPRATROPIUM 0.5 MG/ALBUTEROL SULFATE 2.5 MG AMPUL.NEB 3 ML INHALATION ×4 (01:51→19:34)
[2024-01-13 06:45] LABS: Basophils Percent Auto 0.7 % (0.2-1.2); Eosinophils Absolute Auto 0.2 K/mm3 (0-0.3); Eosinophils Percent Auto 2.9 % (0-4.4); Hematocrit 34.5 % (42.0-52.0); Hemoglobin 10.5 g/dL (14.0-18.0); Immature Granulocyte Absolute 0.03 K/mm3 (0.00-0.031); Immature Granulocyte Percent A 0.5 % (0-0.5); Lymphocytes Percent Auto 16.8 % (18.3-44.2); Mean Corpuscular HGB Conc 30.4 g/dl (32-36); Mean Corpuscular Hemoglobin 31.8 pg (26-34); Mean Corpuscular Volume 104.5 fl (80-100); Mean Platelet Volume 9.6 fl (7.4-10.4); Monocytes Absolute Auto 0.6 K/mm3 (0.1-0.6); Monocytes Percent Auto 10.2 % (2.6-8.5); Neutrophils Absolute Auto 4.1 K/mm3 (1.3-6.7); Neutrophils Percent Auto 68.9 % (45.5-73.1); Platelet Count Result 278 k/mm3 (150-375); Red Cell Distribution Width 15.1 % (11.5-14.5)
[2024-01-13 07:02] LABS: Alanine Aminotransferase 13 U/L (6-50); Alkaline Phosphatase 96 U/L (38-126); Aspartate Amino Transferase 20 U/L (17-59); Bilirubin,Total 0.5 mg/dL (0.2-1.3); Blood Urea Nitrogen 23 mg/dL (9-20); Calcium 7.9 mg/dL (8.4-10.2); Carbon Dioxide > 40 mmol/L (22-30); Chloride 91 mmol/L (98-107); Estimated CRCL calculation 96 ml/min; Estimated Glomerular Filt Rate > 60; Glucose 105 mg/dL (65-110); Magnesium 2.2 mg/dL (1.6-2.3); Sodium 133 mmol/L (137-145)
[2024-01-13] MEDS: FLUTICASONE/UMECLIDIN/VILANTER 100-62.5-25 MCG ELLIPTA 1 PUFF INHALATION (07:48)
--- NOTE | 2024-01-13 08:09 | PCPTNOTE ---
Attempted to see patient for PT, however patient declined due to wanting to get his breakfast first.
[2024-01-13 08:21] LABS: Glucose Point of Care 86 mg/dl (65-105)
[2024-01-13] MEDS: METOPROLOL SUCCINATE EXT REL 12.5 MG TABCR PO (08:22)
[2024-01-13] MEDS: lisinopriL 2.5 MG TABLET PO (08:23)
[2024-01-13] MEDS: ASCORBIC ACID 500 MG TABLET PO (08:23)
[2024-01-13] MEDS: CLOPIDOGREL BISULFATE 75 MG TABLET PO (08:23)
[2024-01-13] MEDS: AMOXICILLIN/CLAVULANATE K 875-125 MG TAB 1 TABLET PO ×2 (08:23→21:03)
[2024-01-13] MEDS: ASPIRIN 81 MG ENTERIC TABLET PO (08:23)
[2024-01-13] MEDS: dexAMETHasone SOD PHOS INJ 10 MG/ML 1 ML VIAL 6 MG IV PUSH (08:27)
[2024-01-13] MEDS: NICOTINE (*PBKC) 21 MG PATCH 1 PATCH TRANSDERM (08:27)
[2024-01-13] MEDS: ENOXAPARIN 40 MG/0.4 ML SYRINGE SUB-Q (08:27)
[2024-01-13] MEDS: BRIMONIDINE TARTRATE 0.2% OP SOLN 5 ML BTL 1 DROP EACH EYE ×3 (08:27→17:11)
[2024-01-13] MEDS: AZITHROMYCIN 250 MG TABLET 500 MG PO (08:32)
[2024-01-13 11:52] LABS: Glucose Point of Care 177 mg/dl (65-105)
[2024-01-13] MEDS: INSULIN ASPART (*BKC) 100 UNITS/ML 6 UNITS SUB-Q ×2 (12:10→17:12)
--- NOTE | 2024-01-13 15:34 | PM.IMPN ---
Progress Note: A&P Assessment and Plan (1) Acute hypoxic on chronic hypercapnic respiratory failure: Code(s): J96.01 - Acute respiratory failure with hypoxia; J96.12 - Chronic respiratory failure with hypercapnia Status: Acute (2) Atrial fibrillation: Code(s): I48.91 - Unspecified atrial fibrillation Status: Acute (3) Anemia, macrocytic: Code(s): D53.9 - Nutritional anemia, unspecified Status: Acute (4) Pneumonia: Qualifiers: Laterality: bilateral Lung location: lower lobe of lung Code(s): J18.9 - Pneumonia, unspecified organism Status: Acute (5) Lung nodule: Code(s): R91.1 - Solitary pulmonary nodule Status: Acute (6) COPD exacerbation: Code(s): J44.1 - Chronic obstructive pulmonary disease with (acute) exacerbation Status: Acute Plan This is a 78-year-old male with history of lung cancer COPD brought in from nursing facility for shortness of breath. Patient apparently woke from sleep complaining of shortness of breath this a.m. nursing staff checked his saturation was in mid 80s on his baseline 2 L oxygen. His oxygen requirement was bumped up to 4 L with improvement in his oxygen saturation. EMS was then called and was brought to the hospital for evaluation. He reports cough with productive sputum without blood no chest pain. He was initially placed on BiPAP in the ER. Rule suspected here COPD exacerbation. Received nebulizer treatment IV steroid and magnesium. VBG was done which showed CO2 of 86 with pH of 7.31 and hence was started on BiPAP. Revaluation patient will better BNP was elevated at 4000. Initial troponin was negative. CBC with mild anemia with hemoglobin of 11 otherwise unremarkable. Mildly hypocalcemic. EKG with nonspecific ST-T changes. Chest x-ray with COPD changes with stable nonspecific haziness left lung base. Patient tested negative for influenza RSV and COVID. BiPAP was later tapered off. Placed on nasal cannula oxygen. Patient is admitted in the setting for further treatment. Acute hypoxic/hypercapnic respiratory failure initial blood gas was VBG unclear if he has true hypercapnic respiratory failure are just hypoxic. ABG repeat with pCO2 of 49 but this is after BiPAP treatment Recent CTA negative for PE but was positive for consolidation on the left greater than right. Pneumonia azithromycin cefepime recent nasal MRSA negative. Switched to oral. CTA negative PE may be mild pulmonary edema received a dose of Lasix. Will continue on oral Lasix every day Advanced COPD on home oxygen with chronic hypercapnic resp failure. was arrranged for home bipap at last discahrge from [place] History of non-small cell lung cancer of left lower lobe status post empiric SBRT History of subarachnoid hemorrhage 12/2023 Hypercapnic respiratory failure on CPAP at home pulmonary seen him and was placed on BiPAP/AVAPS. will keep on BIPAP at night and during naps recheck ABG and chest x-ray. he has got noncompliance with his BiPAP treatment. switch to AVAPS?. this comes from Dr. Scott. pulmoanry consulted to further evaluation. Will discuss with also advised to follow up with Dr. Scott Type 2 diabetes mellitus SSI a1c 7.6 CAD status post TIM 09/2022 on aspirin and plavix and statin Chronic systolic CHF EF 35% was on aspirin and Plavix. Heart failure with reduced ejection fraction on Jardiance and Lasix as needed lisinopril and metoprolol Age indeterminate but fracture of T5 History of dementia Chronic AFib he had deferred anticoagulation for AFib DVT prophylaxis Lovenox Code status do not resuscitate Subjective Date/time seen: 01/13/24 15:34 Interval history: No overnight events. Shortness of breath with exertion. Feeling better. Use BiPAP at night. Review of Systems Review of Systems: All systems reviewed & are unremarkable except as noted in HPI and below Exam Narrative: GENERAL: Thin built, in no acute distress H
[2024-01-13 17:03] LABS: Glucose Point of Care 222 mg/dl (65-105)
[2024-01-13] MEDS: INSULIN ASPART (*BKC) 100 UNITS/ML SUB-Q (17:12)
[2024-01-13 20:23] LABS: Glucose Point of Care 164 mg/dl (65-105)
[2024-01-13] MEDS: MIRTAZAPINE 7.5 MG TABLET PO (21:02)
[2024-01-13] MEDS: INSULIN GLARGINE (*BKC) 100 UNITS/ML 10 UNITS SUB-Q (21:03)
[2024-01-13] MEDS: QUEtiapine FUMARATE 25 MG TABLET PO (21:03)
[2024-01-13 22:31] LABS: Glucose Point of Care 207 mg/dl (65-105)
[2024-01-14] VITALS (17 sets, daily range): BP systolic 114–122; BP diastolic 52–64; PULSE 63–89; RESP 17–28; TEMP 36.6–36.8; O2SAT 95–100
[2024-01-14] MEDS: IPRATROPIUM 0.5 MG/ALBUTEROL SULFATE 2.5 MG AMPUL.NEB 3 ML INHALATION ×4 (03:15→21:00)
[2024-01-14 07:20] LABS: Basophils Percent Auto 0.7 % (0.2-1.2); Eosinophils Absolute Auto 0.2 K/mm3 (0-0.3); Eosinophils Percent Auto 3.9 % (0-4.4); Hematocrit 34.5 % (42.0-52.0); Hemoglobin 10.6 g/dL (14.0-18.0); Immature Granulocyte Absolute 0.03 K/mm3 (0.00-0.031); Immature Granulocyte Percent A 0.5 % (0-0.5); Lymphocytes Absolute Auto 1.32 K/mm3 (0.9-3.2); Lymphocytes Percent Auto 22.4 % (18.3-44.2); Mean Corpuscular HGB Conc 30.7 g/dl (32-36); Mean Corpuscular Hemoglobin 31.6 pg (26-34); Mean Platelet Volume 9.2 fl (7.4-10.4); Monocytes Absolute Auto 0.7 K/mm3 (0.1-0.6); Neutrophils Absolute Auto 3.6 K/mm3 (1.3-6.7); Neutrophils Percent Auto 60.5 % (45.5-73.1); Platelet Count Result 293 k/mm3 (150-375); Red Blood Count 3.35 M/mm3 (4.6-6.20); Red Cell Distribution Width 15.2 % (11.5-14.5); White Blood Count 5.9 K/mm3 (4.5-10.0)
[2024-01-14] MEDS: FLUTICASONE/UMECLIDIN/VILANTER 100-62.5-25 MCG ELLIPTA 1 PUFF INHALATION (07:40)
[2024-01-14 07:44] LABS: Alanine Aminotransferase 14 U/L (6-50); Albumin Level 3.1 g/dL (3.5-5.1); Alkaline Phosphatase 86 U/L (38-126); Aspartate Amino Transferase 20 U/L (17-59); Bilirubin,Total 0.3 mg/dL (0.2-1.3); Blood Urea Nitrogen 21 mg/dL (9-20); Calcium 8.2 mg/dL (8.4-10.2); Carbon Dioxide > 40 mmol/L (22-30); Chloride 91 mmol/L (98-107); Estimated CRCL calculation 82 ml/min; Estimated Glomerular Filt Rate > 60; Glucose 70 mg/dL (65-110); Potassium 4.6 mmol/L (3.4-5.0); Sodium 135 mmol/L (137-145)
[2024-01-14 08:40] LABS: Glucose Point of Care 202 mg/dl (65-105)
[2024-01-14] MEDS: dexAMETHasone 2 MG TABLET 6 MG PO (09:38)
[2024-01-14] MEDS: METOPROLOL SUCCINATE EXT REL 12.5 MG TABCR PO (09:38)
[2024-01-14] MEDS: CLOPIDOGREL BISULFATE 75 MG TABLET PO (09:38)
[2024-01-14] MEDS: lisinopriL 2.5 MG TABLET PO (09:38)
[2024-01-14] MEDS: ASCORBIC ACID 500 MG TABLET PO (09:39)
[2024-01-14] MEDS: ASPIRIN 81 MG ENTERIC TABLET PO (09:40)
[2024-01-14] MEDS: FUROSEMIDE 20 MG TABLET PO (09:40)
[2024-01-14] MEDS: ENOXAPARIN 40 MG/0.4 ML SYRINGE SUB-Q (09:40)
[2024-01-14] MEDS: NICOTINE (*PBKC) 21 MG PATCH 1 PATCH TRANSDERM (09:40)
[2024-01-14] MEDS: INSULIN ASPART (*BKC) 100 UNITS/ML 6 UNITS SUB-Q ×2 (09:41→17:28)
[2024-01-14] MEDS: INSULIN ASPART (*BKC) 100 UNITS/ML SUB-Q ×2 (09:41→20:50)
[2024-01-14] MEDS: BRIMONIDINE TARTRATE 0.2% OP SOLN 5 ML BTL 1 DROP EACH EYE ×3 (09:41→17:28)
[2024-01-14 12:25] LABS: Alveolar/Arterial O2 Gradient 136.9 mmHg; Base Excess ABG 14.1 mEq/l (+/-2.0); Carboxyhemoglobin 0.7 % THb (0-2.0); Fractional Inspired Oxygen 36 %; HCO3 ABG 40.8 mEq/l (22.0-26.0); Methemoglobin ABG 0.1 %THb (0-1.5); PO2 FiO2 Ratio Arterial Blood 1.38 %; Reduced Hemoglobin 12.7 %THb (0-5.0); Total Hemoglobin 13.2 g/dL (12.0-18.0); pH ABG 7.448 (7.350-7.450)
[2024-01-14 12:28] LABS: PCO2 ABG 60.3 mmHg (35.0-45.0); PO2 ABG 49.8 mmHg (80.0-100.0)
[2024-01-14 12:29] LABS: Modified Allen's Test Pass; Oxygen Saturation ABG 85.7 % (95.0-100.0); Oxyhemoglobin 86.5 % THb (90.0-100.0); Site Drawn LEFT RADIAL
[2024-01-14 12:30] LABS: Device NASAL CANNULA
[2024-01-14 12:39] LABS: Glucose Point of Care 54 mg/dl (65-105)
--- NOTE | 2024-01-14 13:06 | PCPTNOTE ---
Attempted to see patient for PT, however all of patient's ABGs are not in normal limites and patient not feeling well with shortness of breath. Patient not able to be seen for PT for this reason.
[2024-01-14 13:11] LABS: Glucose Point of Care 101 mg/dl (65-105)
--- NOTE | 2024-01-14 16:46 | PM.IMPN ---
Progress Note: A&P Assessment and Plan (1) Acute hypoxic on chronic hypercapnic respiratory failure: Code(s): J96.01 - Acute respiratory failure with hypoxia; J96.12 - Chronic respiratory failure with hypercapnia Status: Acute Plan Patient is overall doing better. Become short of breath with minimal exertion. His pH was 7.48, pCO2 60, bicarb 40.8. His end-stage chronic obstructive lung disease with chronic hypoxia and hypercapnia. He will do best with optimal titration of noninvasive ventilator. Pulmonology continues to follow. The bronchodilator scheduled, and Trelegy. bowlingnox. Pt wishes to be DNR. Subjective Date/time seen: 01/14/24 16:46 Interval history: No major acute overnight events. Patient was doing well all morning, he then work with therapy and became short of breath. He had no fever, chest pain, cough, nausea or vomiting. He was placed on BiPAP and improved. Review of Systems Review of Systems: All systems reviewed & are unremarkable except as noted in HPI and below (subjective) Exam Const: General: comfortable and no acute distress Eyes: Pupils: Equal, round and reactive pupils present Neck: Neck: supple Resp: Effort & Inspection: normal respiratory effort Other: Severely diminished lung sounds GI: GI Palp: Yes Soft to palpation Extrem: General: no edema Objective Data Vital Signs Vital Signs: Vital Signs - 24 hr 01/13/24 19:35 01/13/24 19:40 01/13/24 19:43 Temperature Pulse Rate 72 73 Respiratory Rate 19 19 Blood Pressure Pulse Oximetry 98 Oxygen Delivery Nasal Cannula Oxygen Flow Rate 3.5 Fraction of Inspired Oxygen 01/13/24 20:02 01/13/24 21:03 01/13/24 23:00 Temperature 97.7 F Pulse Rate 70 70 Respiratory Rate 17 28 H Blood Pressure 101/48 L Pulse Oximetry 99 99 98 Oxygen Delivery Nasal Cannula BiPAP Oxygen Flow Rate 3.5 Fraction of Inspired Oxygen 01/14/24 03:44 01/14/24 03:15 01/14/24 04:36 Temperature 98.2 F Pulse Rate 89 69 64 Respiratory Rate 22 H 19 17 Blood Pressure 119/58 L Pulse Oximetry 97 97 Oxygen Delivery BiPAP Oxygen Flow Rate Fraction of Inspired Oxygen 01/14/24 03:30 01/14/24 07:30 01/14/24 07:30 Temperature Pulse Rate 70 63 63 Respiratory Rate 20 20 20 Blood Pressure Pulse Oximetry 99 Oxygen Delivery Nasal Cannula Oxygen Flow Rate 4 Fraction of Inspired Oxygen 36 01/14/24 07:40 01/14/24 09:38 01/14/24 08:00 Temperature Pulse Rate 67 67 Respiratory Rate 20 Blood Pressure Pulse Oximetry 99 Oxygen Delivery Nasal Cannula Oxygen Flow Rate 3.5 Fraction of Inspired Oxygen 01/14/24 12:12 01/14/24 12:12 01/14/24 12:19 Temperature Pulse Rate 83 83 88 Respiratory Rate 28 H 28 H 24 H Blood Pressure Pulse Oximetry 95 Oxygen Delivery Nasal Cannula Oxygen Flow Rate 4 Fraction of Inspired Oxygen 36 01/14/24 14:00 01/14/24 14:00 Temperature 98 F Pulse Rate 72 66 Respiratory Rate 20 19 Blood Pressure 122/64 Pulse Oximetry 96 98 Oxygen Delivery BiPAP Oxygen Flow Rate Fraction of Inspired Oxygen Intake/Output Intake/Output: Intake & Output 01/11/24 01/12/24 01/13/24 01/14/24 23:59 23:59 23:59 23:59 Intake Total 1670 1760 1380 680 Output Total 1925 2850 1275 450 Balance -255 -1090 105 230 Meds/Results Medications: Active Medications Generic Name Dose Route Start Last Admin Trade Name Freq PRN Reason Stop Dose Admin Acetaminophen 650 mg 01/09/24 09:11 Acetaminophen 325 Mg Tablet PO Q4H PRN Mild Pain (1-3) or Fever Albuterol 1 puff 01/09/24 13:52 01/11/24 06:04 Albuterol Sulfate (*Sp) Aerosol 1 Puff INHALATION 1 puff QID PRN Administration Shortness Of Breath Or Wheezing Albuterol/Ipratropium 3 ml 01/09/24 20:00 01/14/24 12:12 Ipratropium 0.5 Mg/Albuterol Sulfate 2.5 Mg Ampul.Neb 3 Ml INHALATION 3 ml Q6HRT JONATHAN Administration Ascorbic Acid 50
[2024-01-14 17:03] LABS: Glucose Point of Care 191 mg/dl (65-105)
--- NOTE | 2024-01-14 17:45 | PM.CNPUL ---
Assessment and Plan Assessment and plan (1) Acute hypoxic on chronic hypercapnic respiratory failure: Code(s): J96.01 - Acute respiratory failure with hypoxia; J96.12 - Chronic respiratory failure with hypercapnia Status: Acute Assessment and Plan: Has used O2 at home several years, can be weaned now, as his saturation is 96-100% on 4 L/min Lower O2, and maybe have a walk before he leaves. He sees Dr Scott, has not been going there very long, just got a BiPAP, has not been using regularly. Using BiPAP at night is expected to help him, and he needs to follow through. (2) Pneumonia: Qualifiers: Laterality: bilateral Lung location: lower lobe of lung Code(s): J18.9 - Pneumonia, unspecified organism Status: Acute Assessment and Plan: Probably atelectasis, does not have excessive sputum, no fever, WBC was normal 9.7 on admission, remains normal. (3) Lung nodule: Code(s): R91.1 - Solitary pulmonary nodule Status: Acute Assessment and Plan: CAT 01/09/2024; 15 mm nodule in lingula, stable from 08/10/18, likely benign. There is septal thickening in the lungs, likely mild pulmonary edema. this can be followed over time. (4) COPD exacerbation: Code(s): J44.1 - Chronic obstructive pulmonary disease with (acute) exacerbation Status: Acute Assessment and Plan: managed with steroids, bronchodilators, pulmonary hygiene; could use a Cornet valve to help clear secretions, Has an incentive spirometer which is helping; he can use both of these at home. (5) Secondary pulmonary arterial hypertension: Code(s): I27.21 - Secondary pulmonary arterial hypertension Status: Acute Assessment and Plan: RVSP elevated on echo, due to lung disease, and does not need specific treatment this was from an old echo 09/10/2027 RVSP 39 mm Hg. This was 6 years ago, probably higher. Needs to quit smoking, and needs to have repeat echo; he is followed by Dr Scott, and I think that he may have a seed core operator as well. I do not plan to order an echo while he is here. Plan plan: continue COPD management no need for a new non-invasive device at home; he needs ot use his BiPAP, and on use same settings here for hypercapnea Cornet valve to help clear secretions tobacco cessation he will f/u w Dr Scott, pulmonary at [facility] Will follow w you History of Present Illness History of Present Illness Consult date: 01/15/24 Requesting physician: Rhys Staples MD Chief complaint: Pneumonia, Lung Cancer, COPD Exacerbation, chronic Narrative: reason for consult; Chronic respiratory failure on BiPAP; requested by Dr Staples; Jan 13 at 17:15 Room 242 NEW: Heriberto Mckeon is a 78-year-old man with COPD, O2 use for 4-5 years, BiPAP with sleep for a week before admission here however he is not compliant with use, has been told that he really needs to use it. He was diagnosed with non-small lung cancer treated with radiation in the last year; he still smokes a half pack per day. He is followed by curb setter Dr Zana Scott in [place]. He lives at his home with his grandson, Heriberto. Was admitted with increasing shortness of breath over a few days, cough, sputum without chest pain. He tells me that he fell, he has a problem falling over, when EMS arrived, it was suggested by the truck driver that the patient just stay at home, he was told that he was not all that bad although the he had hit his head and was having bleeding from his scalp. CTA on January 11 showed mild pulmonary edema with small bilateral pleural effusions, moderate emphysema, airspace opacities
[2024-01-14] MEDS: MIRTAZAPINE 7.5 MG TABLET PO (20:48)
[2024-01-14] MEDS: QUEtiapine FUMARATE 25 MG TABLET PO (20:48)
[2024-01-14] MEDS: INSULIN GLARGINE (*BKC) 100 UNITS/ML 10 UNITS SUB-Q (20:50)
[2024-01-14 22:01] LABS: Glucose Point of Care 228 mg/dl (65-105)
[2024-01-15] VITALS (16 sets, daily range): BP systolic 94–132; BP diastolic 50–75; PULSE 52–100; RESP 17–25; TEMP 36.4–37; O2SAT 96–98
[2024-01-15] MEDS: IPRATROPIUM 0.5 MG/ALBUTEROL SULFATE 2.5 MG AMPUL.NEB 3 ML INHALATION ×4 (02:26→20:42)
[2024-01-15 05:40] LABS: Basophils Percent Auto 0.7 % (0.2-1.2); Eosinophils Absolute Auto 0.1 K/mm3 (0-0.3); Eosinophils Percent Auto 2.2 % (0-4.4); Hematocrit 34.4 % (42.0-52.0); Hemoglobin 10.3 g/dL (14.0-18.0); Immature Granulocyte Absolute 0.02 K/mm3 (0.00-0.031); Immature Granulocyte Percent A 0.4 % (0-0.5); Lymphocytes Absolute Auto 1.09 K/mm3 (0.9-3.2); Lymphocytes Percent Auto 19.6 % (18.3-44.2); Mean Corpuscular HGB Conc 29.9 g/dl (32-36); Mean Corpuscular Hemoglobin 30.7 pg (26-34); Mean Corpuscular Volume 102.7 fl (80-100); Mean Platelet Volume 9.4 fl (7.4-10.4); Monocytes Absolute Auto 0.7 K/mm3 (0.1-0.6); Monocytes Percent Auto 12.1 % (2.6-8.5); Neutrophils Absolute Auto 3.6 K/mm3 (1.3-6.7); Platelet Count Result 294 k/mm3 (150-375); Red Blood Count 3.35 M/mm3 (4.6-6.20); Red Cell Distribution Width 15.5 % (11.5-14.5); White Blood Count 5.6 K/mm3 (4.5-10.0)
[2024-01-15 06:00] LABS: Alanine Aminotransferase 14 U/L (6-50); Albumin Level 3.1 g/dL (3.5-5.1); Alkaline Phosphatase 85 U/L (38-126); Aspartate Amino Transferase 22 U/L (17-59); Bilirubin,Total 0.3 mg/dL (0.2-1.3); Blood Urea Nitrogen 24 mg/dL (9-20); Calcium 8.4 mg/dL (8.4-10.2); Carbon Dioxide > 40 mmol/L (22-30); Chloride 90 mmol/L (98-107); Estimated CRCL calculation 71 ml/min; Estimated Glomerular Filt Rate > 60; Glucose 99 mg/dL (65-110); Magnesium 2.1 mg/dL (1.6-2.3); Potassium 4.2 mmol/L (3.4-5.0); Sodium 135 mmol/L (137-145)
[2024-01-15 07:07] LABS: Anisocytosis 1+; Hypochromasia 1+; Platelet Estimate Adequate (Adequate); Schistocytes None Seen
[2024-01-15 08:03] LABS: Glucose Point of Care 120 mg/dl (65-105)
[2024-01-15] MEDS: FLUTICASONE/UMECLIDIN/VILANTER 100-62.5-25 MCG ELLIPTA 1 PUFF INHALATION (08:38)
[2024-01-15] MEDS: ASPIRIN 81 MG ENTERIC TABLET PO (08:59)
[2024-01-15] MEDS: METOPROLOL SUCCINATE EXT REL 12.5 MG TABCR PO (08:59)
[2024-01-15] MEDS: lisinopriL 2.5 MG TABLET PO (08:59)
[2024-01-15] MEDS: ENOXAPARIN 40 MG/0.4 ML SYRINGE SUB-Q (08:59)
[2024-01-15] MEDS: ASCORBIC ACID 500 MG TABLET PO (08:59)
[2024-01-15] MEDS: NICOTINE (*PBKC) 21 MG PATCH 1 PATCH TRANSDERM (08:59)
[2024-01-15] MEDS: CLOPIDOGREL BISULFATE 75 MG TABLET PO (08:59)
[2024-01-15] MEDS: FUROSEMIDE 20 MG TABLET PO (08:59)
[2024-01-15] MEDS: INSULIN ASPART (*BKC) 100 UNITS/ML 6 UNITS SUB-Q ×3 (09:00→17:13)
[2024-01-15] MEDS: BRIMONIDINE TARTRATE 0.2% OP SOLN 5 ML BTL 1 DROP EACH EYE ×3 (09:00→17:13)
[2024-01-15 11:45] LABS: Glucose Point of Care 152 mg/dl (65-105)
--- NOTE | 2024-01-15 13:06 | PM.PNPUL ---
Progress Note: A&P Assessment and Plan (1) Acute hypoxic on chronic hypercapnic respiratory failure: Code(s): J96.01 - Acute respiratory failure with hypoxia; J96.12 - Chronic respiratory failure with hypercapnia Status: Acute Assessment and Plan: Has used O2 at home several years, can be weaned now, as his saturation is 96-100% on 4 L/min Lower O2, and maybe have a walk before he leaves. He sees Dr Scott, has not been going there very long, just got a BiPAP, has not been using regularly. Using BiPAP at night is expected to help him, and he needs to follow through. (2) Pneumonia: Qualifiers: Laterality: bilateral Lung location: lower lobe of lung Code(s): J18.9 - Pneumonia, unspecified organism Status: Acute Assessment and Plan: Probably atelectasis, does not have excessive sputum, no fever, WBC was normal 9.7 on admission, remains normal. (3) Lung nodule: Code(s): R91.1 - Solitary pulmonary nodule Status: Acute Assessment and Plan: CT 01/09/2024; 15 mm nodule in lingula, stable from 08/10/18, likely benign. There is septal thickening in the lungs, likely mild pulmonary edema. this can be followed over time. (4) COPD exacerbation: Code(s): J44.1 - Chronic obstructive pulmonary disease with (acute) exacerbation Status: Acute Assessment and Plan: managed with steroids, bronchodilators, pulmonary hygiene; could use a Cornet valve to help clear secretions, Has an incentive spirometer which is helping; he can use both of these at home. (5) Secondary pulmonary arterial hypertension: Code(s): I27.21 - Secondary pulmonary arterial hypertension Status: Acute Assessment and Plan: RVSP elevated on echo, due to lung disease, and does not need specific treatment this was from an old echo 09/10/2027 RVSP 39 mm Hg. This was 6 years ago, probably higher. Needs to quit smoking, and needs to have repeat echo; he is followed by Dr Scott, and I think that he may have a counseling center director as well. I do not plan to order an echo while he is here. Subjective Date/time seen: 01/15/24 13:06 Interval history: 01/15/2024; hospital follow up; follow up for COPD, O2 use for 4-5 years, BiPAP with sleep starting a week prior to admission, non-small lung cancer, smoker. He tells me that his breathing feels much better today, however he has problems with vision out of his right eye that has been intermittent over the last 6 weeks since cataract susrgery. He has not called his Scrap Dealer yet. Heriberto Mckeon is a 78-year-old man with COPD, O2 use for 4-5 years, BiPAP with sleep for a week before admission here however he is not compliant with use, has been told that he really needs to use it. He was diagnosed with non-small lung cancer treated with radiation in the last year; he still smokes a half pack per day. He is followed by relationship counselor Dr Zana Scott in [place]. He lives at his home with his grandson, Heriberto. Was admitted with increasing shortness of breath over a few days, cough, sputum without chest pain. He tells me that he fell, he has a problem falling over, when EMS arrived, it was suggested by the driver's education instructor that the patient just stay at home, he was told that he was not all that bad although the he had hit his head and was having bleeding from his scalp. CTA on January 11 showed mild pulmonary edema with small bilateral pleural effusions, moderate emphysema, airspace opacities in the left lower lobe and lingula, pneumonia versus atelectasis. He feels better now compared to admission b
--- NOTE | 2024-01-15 15:00 | PM.IMPN ---
Progress Note: A&P Assessment and Plan (1) Acute hypoxic on chronic hypercapnic respiratory failure: Code(s): J96.01 - Acute respiratory failure with hypoxia; J96.12 - Chronic respiratory failure with hypercapnia Status: Acute Plan Patient is overall doing better. Become short of breath with minimal exertion. His pH was 7.48, pCO2 60, bicarb 40.8. His end-stage chronic obstructive lung disease with chronic hypoxia and hypercapnia. He will do best with optimal titration of noninvasive ventilator. Pulmonology continues to follow. The bronchodilator scheduled, and Trelegy. bowlingnox. Pt wishes to be DNR. On 01/15/2024 the patient has some resting dyspnea. Pulmonology continues to follow. Is a bit of a low blood pressure. Hopefully with continued BiPAP therapy he will be able to go home tomorrow. In the meantime will hold his blood pressure medications and monitor his blood pressure trend. Subjective Date/time seen: 01/15/24 15:00 Interval history: Patient appears short of breath upon walking in the room, has slightly labored respiration. He thinks he is better than yesterday's attack although Review of Systems Review of Systems: All systems reviewed & are unremarkable except as noted in HPI and below (Subjective) Exam Const: General: comfortable and in distress Eyes: Pupils: Equal, round and reactive pupils present Neck: Neck: supple Resp: Auscultation: diminished lung sounds Cardio: Rate: regular rate Rhythm: regular rhythm GI: GI Palp: Yes Soft to palpation and No Tenderness to palpation present (GI) Extrem: General: no edema Objective Data Vital Signs Vital Signs: Vital Signs - 24 hr 01/14/24 16:45 01/14/24 19:54 01/14/24 22:35 Temperature 98.3 F Pulse Rate 83 64 64 Respiratory Rate 20 18 22 H Blood Pressure 114/52 L Pulse Oximetry 100 100 100 Oxygen Delivery Nasal Cannula BiPAP Oxygen Flow Rate 4 Fraction of Inspired Oxygen 36 01/14/24 21:00 01/14/24 21:10 01/15/24 02:27 Temperature Pulse Rate 64 65 56 L Respiratory Rate 20 20 17 Blood Pressure Pulse Oximetry Oxygen Delivery Oxygen Flow Rate Fraction of Inspired Oxygen 01/15/24 02:29 01/15/24 02:33 01/14/24 20:36 Temperature Pulse Rate 52 L 56 L Respiratory Rate 17 17 Blood Pressure Pulse Oximetry 96 100 Oxygen Delivery BiPAP Nasal Cannula Oxygen Flow Rate 4 Fraction of Inspired Oxygen 01/15/24 06:00 01/15/24 08:39 01/15/24 08:39 Temperature 97.6 F Pulse Rate 95 68 68 Respiratory Rate 18 20 20 Blood Pressure 132/75 Pulse Oximetry 98 96 Oxygen Delivery Nasal Cannula Oxygen Flow Rate 4 Fraction of Inspired Oxygen 36 01/15/24 08:46 01/15/24 08:59 01/15/24 08:00 Temperature Pulse Rate 87 87 Respiratory Rate 20 Blood Pressure Pulse Oximetry 96 Oxygen Delivery Nasal Cannula Oxygen Flow Rate 2 Fraction of Inspired Oxygen 01/15/24 14:00 01/15/24 14:43 01/15/24 14:43 Temperature 98.6 F Pulse Rate 99 95 95 Respiratory Rate 18 20 20 Blood Pressure 96/50 L Pulse Oximetry 96 96 Oxygen Delivery Nasal Cannula Oxygen Flow Rate 4 Fraction of Inspired Oxygen 36 01/15/24 14:50 Temperature Pulse Rate 100 Respiratory Rate 20 Blood Pressure Pulse Oximetry Oxygen Delivery Oxygen Flow Rate Fraction of Inspired Oxygen Intake/Output Intake/Output: Intake & Output 01/12/24 01/13/24 01/14/24 01/15/24 23:59 23:59 23:59 23:59 Intake Total 1760 1380 1420 600 Output Total 2850 1275 950 Balance -1090 105 470 600 Meds/Results Medications: Active Medications Generic Name Dose Route Start Last Admin Trade Name Freq PRN Reason Stop Dose Admin Acetaminophen 650 mg 01/09/24 09:11 Acetaminophen 325 Mg Tablet PO Q4H PRN Mild Pain (1-3) or Fever Albuterol 1 puff 01/09/24 13:52 01/11/24 06:04 Albuterol Sulfate (*Sp) Aerosol 1 Puff INHALATION 1 puff QID PRN Administration
[2024-01-15 16:43] LABS: Glucose Point of Care 119 mg/dl (65-105)
[2024-01-15 17:55] LABS: Mycoplasma IgM Antibody Titer 105 U/mL
[2024-01-15] MEDS: MIRTAZAPINE 7.5 MG TABLET PO (21:05)
[2024-01-15] MEDS: QUEtiapine FUMARATE 25 MG TABLET PO (21:06)
[2024-01-15 21:09] LABS: Glucose Point of Care 78 mg/dl (65-105)
[2024-01-15 21:12] LABS: Glucose Point of Care 95 mg/dl (65-105)
[2024-01-15 21:44] LABS: Glucose Point of Care 177 mg/dl (65-105)
[2024-01-16] VITALS (12 sets, daily range): BP systolic 99–138; BP diastolic 54–87; PULSE 67–100; RESP 12–18; TEMP 36–36.7; O2SAT 86–100
[2024-01-16] MEDS: IPRATROPIUM 0.5 MG/ALBUTEROL SULFATE 2.5 MG AMPUL.NEB 3 ML INHALATION ×3 (03:19→14:46)
[2024-01-16] MEDS: FLUTICASONE/UMECLIDIN/VILANTER 100-62.5-25 MCG ELLIPTA 1 PUFF INHALATION (07:41)
[2024-01-16] MEDS: ASCORBIC ACID 500 MG TABLET PO (09:00)
[2024-01-16] MEDS: ENOXAPARIN 40 MG/0.4 ML SYRINGE SUB-Q (09:01)
[2024-01-16] MEDS: CLOPIDOGREL BISULFATE 75 MG TABLET PO (09:01)
[2024-01-16] MEDS: NICOTINE (*PBKC) 21 MG PATCH 1 PATCH TRANSDERM (09:01)
[2024-01-16] MEDS: FUROSEMIDE 20 MG TABLET PO (09:01)
[2024-01-16] MEDS: ASPIRIN 81 MG ENTERIC TABLET PO (09:01)
[2024-01-16] MEDS: INSULIN ASPART (*BKC) 100 UNITS/ML 6 UNITS SUB-Q ×3 (09:02→17:35)
[2024-01-16] MEDS: BRIMONIDINE TARTRATE 0.2% OP SOLN 5 ML BTL 1 DROP EACH EYE ×3 (09:02→17:35)
[2024-01-16 09:14] LABS: Glucose Point of Care 173 mg/dl (65-105)
--- NOTE | 2024-01-16 09:54 | PCNWS ---
Weekly nutritional screen. Patient is tolerating current diet with adequate intake, 75-100% on heart healthy diet. No weight loss reported. No nutritional needs at this time.
[2024-01-16 11:42] LABS: Glucose Point of Care 166 mg/dl (65-105)
--- NOTE | 2024-01-16 13:10 | PM.PNPUL ---
Progress Note: A&P Assessment and Plan (1) Acute hypoxic on chronic hypercapnic respiratory failure: Code(s): J96.01 - Acute respiratory failure with hypoxia; J96.12 - Chronic respiratory failure with hypercapnia Status: Acute Assessment and Plan: Has used O2 at home several years, can be weaned now, as his saturation is 96-100% on 4 L/min Lower O2, and maybe have a walk before he leaves. He sees Dr Scott, has not been going there very long, just got a BiPAP, has not been using regularly. Using BiPAP at night is expected to help him, and he needs to follow through. He is stable for discharge today, says that he is close to his baseline. He really needs to strongly consider and follow through with stopping smoking, especially since he has been in the hospital, and has already been off several days. (2) COPD exacerbation: Code(s): J44.1 - Chronic obstructive pulmonary disease with (acute) exacerbation Status: Acute Assessment and Plan: managed with steroids, bronchodilators, pulmonary hygiene; could use a Cornet valve to help clear secretions, Has an incentive spirometer which is helping; he can use both of these at home. Plan OK for discharge today Tobacco cessation information given; UpToDate patient info sheets with [id number] number F/u with Dr Scott in [place] Nicotine patches; Breztri TWO puffs bid and no ipratropium in the nebulizer at home as he already has the LAMA in the Breztri O2 can be weaned, on 4 L/min which exceeds his need. Subjective Date/time seen: 01/16/24 13:10 Interval history: 01/16/2024; Heriberto Goleaner is sitting up in a chair, nasal cannula O2 4 L, sat is 96-100%. HE says that he feels close to normal, not perfect. HE is not having distress. Discussed tobacco cessation, he will f/u w Dr Scott in [place]. ....................................... 01/15/2024; hospital follow up; follow up for COPD, O2 use for 4-5 years, BiPAP with sleep starting a week prior to admission, non-small lung cancer, smoker. He tells me that his breathing feels much better today, however he has problems with vision out of his right eye that has been intermittent over the last 6 weeks since cataract surgery. He has not called his Zipper Ironer yet. Heriberto Mckeon is a 78-year-old man with COPD, O2 use for 4-5 years, BiPAP with sleep for a week before admission here however he is not compliant with use, has been told that he really needs to use it. He was diagnosed with non-small lung cancer treated with radiation in the last year; he still smokes a half pack per day. He is followed by virtual classroom manager Dr Zana Scott in [place]. He lives at his home with his grandson, Heriberto. Was admitted with increasing shortness of breath over a few days, cough, sputum without chest pain. He tells me that he fell, he has a problem falling over, when EMS arrived, it was suggested by the hammer driver that the patient just stay at home, he was told that he was not all that bad although the he had hit his head and was having bleeding from his scalp. CTA on January 11 showed mild pulmonary edema with small bilateral pleural effusions, moderate emphysema, airspace opacities in the left lower lobe and lingula, pneumonia versus atelectasis. He feels better now compared to admission but not back to baseline. WBC 9.7 on admission, staying in the normal range, no fevers. Tobacco: Started smoking age 12 or 13, maximum was 4 packs per day, currently down to half pack per day. He has never had a serious quit attempt. He has smoked for over 60 years. Work: Retired first crusher. PMH: Atrial fibrillation, anemia, COPD, O2 use, non-small cell lung cancer s/p XRT, Family history: Daughter is 51, has asthma. Mother had lung cancer. Sister recently at age 82, lung
--- NOTE | 2024-01-16 16:30 | PM.DS ---
DS: Admitting Diagnosis Discharge Date January 16, 2024 Admitting Diagnosis Shortness of breath DS: Discharge Diagnosis Discharge Diagnosis (1) Acute hypoxic on chronic hypercapnic respiratory failure: Code(s): J96.01 - Acute respiratory failure with hypoxia; J96.12 - Chronic respiratory failure with hypercapnia Status: Acute DS: Summary Hospital Course Hospital Course: Mr. Duran presented with shortness of breath. He had not been wearing his noninvasive ventilator at his alf facility where he stays permanently. He also still smokes. Patient was admitted and he wore BiPAP mostly every night. He has not been smoking here. His symptomatology is greatly improved and pulmonology consultation completed. Discharge in stable and improved condition on 01/16/2024. Advised compliance with noninvasive ventilator and educated the patient it is a life-saving measure for him. He agrees to do so. He agrees to quit smoking as well. He has follow-up with his usual frame stripper Dr. Scott. His small dose of lisinopril has been held due to a borderline low blood pressures. He was DNR. Time Spent with Patient Time attestation: Total time spent providing and/or coordinating discharge services: Exam Const: General: comfortable and no acute distress Eyes: Pupils: Equal, round and reactive pupils present Neck: Neck: supple Resp: Effort & Inspection: normal respiratory effort Other: Decreased breath sounds Cardio: Rate: regular rate Rhythm: regular rhythm GI: GI Palp: Yes Soft to palpation and No Tenderness to palpation present (GI) Extrem: General: no edema DS: Data Data Completed and Pending Labs on day of discharge: Labs from last 24 hours 01/16/24 01/16/24 01/15/24 11:36 08:04 21:41 POC Capillary Glucose 166 H 173 H 177 H Mycoplasma pneumon IgM 01/15/24 01/15/24 01/15/24 20:47 20:04 16:40 POC Capillary Glucose 95 78 119 H Mycoplasma pneumon IgM 01/11/24 17:08 POC Capillary Glucose Mycoplasma pneumon IgM 105 Discharge Plan Discharge Attending physician on discharge: Ivanna Suero Consulting providers: Louisa Raphael Discharging Clinician: Ivanna Suero Patient Disposition: SNF Activity: may shower Diet: as tolerated Discharge Instructions: Follow up with your frame stripper, Dr. Scott in [place]. Wean O2 per protocol goal 90-92%. Wear noninvasive ventilator every night, and as needed. Patient Instructions: How to Stop Smoking (GEN) Stand Alone Forms: General Discharge Information Follow-up/Referrals: Jennifer,Yasmin Coombs APN [Primary Care Provider] - Call for Appointment Discharge Medications: New albuterol sulfate 1.25 mg/3 mL solution for nebulization 1.25 mg inhalation Q4H PRN (Reason: shortness of breath or wheezing) Qty: 75 0RF Continued metformin 500 mg tablet 500 mg PO BID clopidogrel 75 mg tablet 75 mg PO DAILY aspirin 81 mg tablet,delayed release (DR/EC) 81 mg PO DAILY brimonidine 0.2 % drops 1 drp EACH EYE TID furosemide 20 mg tablet 20 mg PO DAILY PRN (Reason: LEG SWELLING) Rx Instructions: weight gain >2lbs in 2 days or leg swelling mirtazapine 15 mg tablet 7.5 mg PO HS metoprolol succinate 25 mg tablet extended release 24 hr 12.5 mg PO DAILY albuterol sulfate 90 mcg/actuation HFA aerosol inhaler 1 inh INHALATION QID PRN (Reason: Shortness Of Breath Or Wheezing) Januvia 100 mg tablet 100 mg PO DAILY Jardiance 10 mg tablet 10 mg PO DAILY Breztri Aerosphere 160-9-4.8 mcg/actuation HFA aerosol inhaler 2 inh INHALATION BID nicotine [Nicoderm CQ] 21 mg/24 hr Patch 24 Hour 1 patch transdermal DAILY Qty: 28 0RF ascorbic acid (vitamin C) 500 mg Tablet 500 mg PO DAILY Held lisinopril 2.5 mg tablet 2.5 mg PO DAILY Hold Instructions: Evaluate this medication with your primary care doctor
[2024-01-16 17:15] LABS: Glucose Point of Care 144 mg/dl (65-105)
== END 2024-01-16 18:14 | DRG 193 ==
LOC: ANHED 07:56 → ANH2MED 09:59
PROVIDERS: Preventive Medicine Aerospace Medicine; Admitting Provider Internal Medicine; Emergency Provider Emergency Medicine; PCP Nurse Practitioner Family; Visit Provider General Practice
DX: J18.9 Pneumonia, unspecified organism (principal); J96.01 Acute respiratory failure with hypoxia; J44.1 Chronic obstructive pulmonary disease with (acute) exacerbation; J96.12 Chronic respiratory failure with hypercapnia; C34.32 Malignant neoplasm of lower lobe, left bronchus or lung; I48.20 Chronic atrial fibrillation, unspecified; I50.22 Chronic systolic (congestive) heart failure; J44.0 Chronic obstructive pulmonary disease with (acute) lower respiratory infection; I11.0 Hypertensive heart disease with heart failure; I25.10 Atherosclerotic heart disease of native coronary artery without angina pectoris; D53.9 Nutritional anemia, unspecified; E11.9 Type 2 diabetes mellitus without complications; F17.210 Nicotine dependence, cigarettes, uncomplicated; Z20.822 Contact with and (suspected) exposure to COVID-19; Z79.82 Long term (current) use of aspirin; Z79.02 Long term (current) use of antithrombotics/antiplatelets
CPT/HCPCS: 36415; 36600; 71045; 71275; 80053; 82375; 82803; 82805; 82948; 83036; 83050; 83735; 83880; 84145; 84484; 85025; 86738; 87040; 87637; 87641; 93005; 94002; 94003; 94640; 96365; 96366; 96367; 96375; 97110; 97161; 97165; 97530; 97535; 99285; A9270; J0456; J0692; J1100; J1650; J1815; J1940; J2060; J2270; J3475; J7030; J8540; Q9967

== ENCOUNTER 2024-02-05 00:11 | Emergency (ER) | payer MEDICARE, MEDICAID, SELFPAY ==
[2024-02-05] VITALS (10 sets, daily range): BP systolic 52–94; BP diastolic 43–56; PULSE 0–100; RESP 14–34; TEMP 35.8–36.7; O2SAT 0–97
[2024-02-05] MEDS: MORPHINE SULFATE (*CRX) 4 MG/ML INJ IV PUSH ×2 (01:01→02:59)
[2024-02-05] MEDS: LORazepam INJ (*CRX) 2 MG/ML VIAL 1 MG IV PUSH ×2 (01:01→02:59)
[2024-02-05] MEDS: GLYCOPYRROLATE INJ (*SP) 0.2 MG/ML VIAL IV PUSH (01:03)
--- NOTE | 2024-02-05 01:46 | ED.GENADULT ---
HPI - General Adult General Chief complaint: Shortness of Breath/Dyspnea Stated complaint: RESPIRATORY DISTRESS Time Seen by Provider: 02/05/24 00:47 History of Present Illness HPI narrative: This is a 78-year-old male who is comfort measures only presenting for respiratory distress. On arrival the patient is unresponsive. Related Data Home Medications Medication Instructions Recorded Confirmed albuterol sulfate 90 mcg/actuation 1 inh inhalation QID PRN Shortness 12/27/23 01/09/24 aerosol inhaler Of Breath Or Wheezing aspirin 81 mg tablet,delayed 81 mg PO DAILY 12/27/23 01/09/24 release brimonidine 0.2 % eye drops 1 drp EACH EYE TID 12/27/23 01/09/24 budesonide 160 mcg-glycopyr 9 2 inh inhalation BID 12/27/23 01/09/24 mcg-formot 4.8 mcg/actuation HFA inhaler (Breztri Aerosphere) clopidogrel 75 mg tablet 75 mg PO DAILY 12/27/23 01/09/24 empagliflozin 10 mg tablet 10 mg PO DAILY 12/27/23 01/09/24 (Jardiance) furosemide 20 mg tablet 20 mg PO DAILY PRN LEG SWELLING 12/27/23 01/09/24 lisinopril 2.5 mg tablet 2.5 mg PO DAILY 12/27/23 01/09/24 metformin 500 mg tablet 500 mg PO BID 12/27/23 01/09/24 metoprolol succinate 25 mg 12.5 mg PO DAILY 12/27/23 01/09/24 tablet,extended release 24 hr mirtazapine 15 mg tablet 7.5 mg PO HS 12/27/23 01/09/24 sitagliptin phosphate 100 mg 100 mg PO DAILY 12/27/23 01/09/24 tablet (Januvia) ascorbic acid (vitamin C) 500 mg 500 mg PO DAILY 01/09/24 01/09/24 tablet Allergies Allergy/AdvReac Type Severity Reaction Status Date / Time No Known Allergies Allergy Mild Unverified 07/26/03 09:21 [facility] Past Medical History Medical History Acute and chronic respiratory failure with hypercapnia Acute and chronic respiratory failure with hypoxia Atherosclerotic heart disease of [place] coronary artery without angina pectoris Atrial fibrillation Chronic obstructive pulmonary disease, unspecified Chronic systolic (congestive) heart failure Essential (primary) hypertension Malignant neoplasm of lower lobe, left bronchus or lung Traumatic subarachnoid hemorrhage without loss of consciousness, initial encounter Type 2 diabetes mellitus with hyperglycemia Unspecified severe protein-calorie malnutrition Family History Family History Mother Family history of lung cancer Sibling Family history of lung cancer Other Diabetes mellitus Social History Social History Smoking packs per day: 2 Smoking cigarettes per day: 40.0 Smoking status: Current every day smoker Alcohol intake: never Substance use: never Do You Feel Safe in your Home?: Yes Lack of Transportation: No Lack of Food: Never True Current Housing: I Have Housing Concerned About Future Housing: No Difficulty Paying Gas/Electric Bills: No Difficulty Paying for Meds: No Currently Unemployed: No Education: High School Diploma/GED Difficulty w/ Childcare or Family Care: No Living arrangements: halfway Additional living arrangements comments: [facility] Spiritual care concerns: No Exam Narrative: APPEARANCE: Frail Head: atraumatic. EYES: EOMI, NOSE: Atraumatic NECK: Trachea midline RESPIRATORY: No increased rate of breathing, scattered crackles CARDIOVASCULAR: RRR, ABDOMINAL: Non-distended soft nontender MUSCULOSKELETAl: No obvious deformities NEURO: Unresponsive SKIN:: Pale PSYCHIATRIC: Normal affect Course Vital Signs Vital signs: Vital Signs Temperature 96.5 F L 02/05/24 00:14 Pulse Rate 75 02/05/24 00:14 Respiratory Rate 14 02/05/24 00:14 Blood Pressure 94/56 L 02/05/24 00:14 Pulse Oximetry 97 02/05/24 00:14 Oxygen Delivery Nasal Cannula 02/05/24 00:14 Oxygen Flow Rate 5 02/05/24 00:14 Temperature 96.5 F L 02/05/24 04:09 Pulse Rate 90 02/05/24 04:09
--- NOTE | 2024-02-05 05:32 | PC.NURSE ---
At 0525 patient's spo2 was unobtainable on the monitor. Nursing staff and EDP Dr. Singer went to bedside of patient. EDP Dr. Singer announced time of at 0525.
--- NOTE | 2024-02-05 07:47 | PC.NURSE ---
RN called pt contact Leanne Moyer, per Leanne unsure which home family is going to have care for pt. RN informed Leanne pt body would be in our morgue, director of conservation can contact storage facility housekeeper.Leanne voices understanding
== END 2024-02-05 08:06 | disposition expired ==
PROVIDERS: Emergency Provider Emergency Medicine; PCP Nurse Practitioner Family
DX: Z51.5 Encounter for palliative care (principal); R40.4 Transient alteration of awareness; R06.03 Acute respiratory distress; J44.9 Chronic obstructive pulmonary disease, unspecified; C34.32 Malignant neoplasm of lower lobe, left bronchus or lung; I11.0 Hypertensive heart disease with heart failure; I50.22 Chronic systolic (congestive) heart failure; E11.9 Type 2 diabetes mellitus without complications; I25.10 Atherosclerotic heart disease of native coronary artery without angina pectoris; I48.91 Unspecified atrial fibrillation; E43 Unspecified severe protein-calorie malnutrition; F17.210 Nicotine dependence, cigarettes, uncomplicated; Z79.51 Long term (current) use of inhaled steroids; Z79.82 Long term (current) use of aspirin; Z79.84 Long term (current) use of oral hypoglycemic drugs; Z79.02 Long term (current) use of antithrombotics/antiplatelets
CPT/HCPCS: 96374; 96375; 96376; 99284; J1596; J2060; J2270